=== PATIENT | female | born 1990 | race Caucasian/White ===

== ENCOUNTER 2023-12-04 13:27 | Emergency (ER) | payer OTHER, SELFPAY ==
--- NOTE | ~2023-12-04 | US_ITS ---
US OB <= 14 weeks fetus DATE: 12/04/2023 INDICATION: Vaginal bleeding, gravid patient TECHNIQUE: Real-time imaging via transabdominal approach only. Patient reportedly refused transvagina l imaging. COMPARISON: None FINDINGS: Uterus measures 11.8 cm sagittal, 6.6 cm AP and 8.2 cm transverse dimension. Live posada intrauterine gestation. heart rate 164 bpm. Ramirez-Perez-rump length measures 3.16 cm, consistent with 10 weeks +/- 6 days estimated gestational age wit h ALBINA of 07/01/2024. No subchorionic hemorrhage or abruption is identified on this limited transabdominal examination. No pelvic mass or abnormal pelvic fluid collection is demonstrated. The ovaries are not visualized. IMPRESSION: Live posada 10 week intrauterine gestation; no significant abnormality demonstrated on this limited transabdominal examination Reviewed, dictated and finalized at [facility]. Reviewed, dictated and finalized at [facility]. IMPRESSION: Live posada 10 week intrauterine gestation; no significant abnor mality demonstrated on this limited transabdominal examination
[2023-12-04 13:31] VITALS: BP 141/79; PULSE 71; RESP 18; TEMP 36.6; O2SAT 99
[2023-12-04 14:31] LABS: Basophils Absolute Auto 0.1 K/mm3 (0.0-0.1); Basophils Percent Auto 0.5 % (0.2-1.2); Eosinophils Absolute Auto 0.2 K/mm3 (0-0.3); Hematocrit 37.7 % (37.0-47.0); Hemoglobin 12.9 g/dL (12.0-15.0); Immature Granulocyte Absolute 0.05 K/mm3 (0.00-0.031); Immature Granulocyte Percent A 0.5 % (0-0.5); Lymphocytes Absolute Auto 2.93 K/mm3 (0.9-3.2); Lymphocytes Percent Auto 28.4 % (18.3-44.2); Mean Corpuscular HGB Conc 34.2 g/dl (32-36); Mean Corpuscular Hemoglobin 31.8 pg (26-34); Mean Corpuscular Volume 92.9 fl (80-100); Mean Platelet Volume 11.8 fl (7.4-10.4); Monocytes Absolute Auto 0.9 K/mm3 (0.1-0.6); Monocytes Percent Auto 8.3 % (2.6-8.5); Neutrophils Absolute Auto 6.2 K/mm3 (1.3-6.7); Neutrophils Percent Auto 60.3 % (45.5-73.1); Platelet Count Result 191 k/mm3 (150-375); Red Blood Count 4.06 M/mm3 (4.2-5.4); Red Cell Distribution Width 11.7 % (11.5-14.5); White Blood Count 10.3 K/mm3 (4.5-10.0)
[2023-12-04 14:41] LABS: INR 0.9
[2023-12-04 14:42] LABS: Partial Thromboplastin Time 26.7 Seconds (22.3-36.8)
[2023-12-04 14:44] LABS: Alanine Aminotransferase 16 U/L (6-35); Albumin Level 4.2 g/dL (3.5-5.1); Alkaline Phosphatase 37 U/L (38-126); Anion Gap 10 mmol/L (4-12); Aspartate Amino Transferase 23 U/L (14-36); Bilirubin,Total 0.2 mg/dL (0.2-1.3); Blood Urea Nitrogen 7 mg/dL (7-17); Calcium 9.3 mg/dL (8.4-10.2); Carbon Dioxide 24 mmol/L (22-30); Chloride 100 mmol/L (98-107); Estimated CRCL calculation 199 ml/min; Estimated Glomerular Filt Rate > 60; Glucose 86 mg/dL (65-110); Potassium 3.8 mmol/L (3.4-5.0); Sodium 134 mmol/L (137-145)
--- NOTE | 2023-12-04 15:03 | ED.PREGNANCY ---
HPI - General Chief complaint: Vaginal Bleeding Stated complaint: 9 weeks , vag bleed Time Seen by Provider: 12/04/23 14:09 Source: patient Mode of arrival: ambulatory Limitations: no limitations History of Present Illness HPI Narrative: This is a 33 year old , about 9 weeks by LMP that presents to the ER for vaginal spotting. Reports today after rastafari she noted light red/pink blood on the tissue when she wiped. Has had an US this . Follows with [facility] for this . Denies pelvic cramping. Related Data Allergies Allergy/AdvReac Type Severity Reaction Status Date / Time No Known Allergies Allergy Verified 12/04/23 13:44 Review of Systems Review of Systems: CONSTITUTIONAL: Denies fever GASTROINTESTINAL: Denies abdominal pain, nausea, vomiting All systems reviewed & are unremarkable except as noted in HPI and below PMFSH Past Medical History Medical History (Updated 12/04/23 @ 16:15 by Vita Anthony PA-C) History of hepatitis C Social History Social History (Updated 12/04/23 @ 15:05 by Vita Anthony PA-C) Smoking status: Former smoker Exam Narrative: GENERAL: Well-appearing, well-nourished, and in no acute distress. HEAD: Normocephalic, atraumatic. EYES: EOMI. CHEST: Clear to auscultation. No respiratory distress. No wheezes rales or rhonchi HEART: Regular rate and rhythm. No murmur heard. Normal peripheral pulses. ABDOMEN: Soft, nontender, nondistended, normal active bowel sounds. No CVA tenderness EXTREMITIES: Normal range of motion. No edema. SKIN: Warm, dry, no rash. NEURO: No focal deficits. Alert and oriented x3. PSYCH: Normal mood and affect Course Course Emergency Course: Patient and family updated on workup and agree with plan of care Vital Signs Vital signs: Vital Signs Temperature 97.9 F 12/04/23 13:31 Pulse Rate 71 12/04/23 13:31 Respiratory Rate 18 12/04/23 13:31 Blood Pressure 141/79 H 12/04/23 13:31 Pulse Oximetry 99 12/04/23 13:31 Temperature 97.9 F 12/04/23 13:31 Pulse Rate 71 12/04/23 13:31 Respiratory Rate 18 12/04/23 13:31 Blood Pressure 141/79 H 12/04/23 13:31 Pulse Oximetry 99 12/04/23 13:31 MDM - OB/Uterine Contractions MDM Narrative Medical decision making narrative: Patient presents to the emergency department for bleeding in 1st trimester . Reports this as very mild spotting. Her vitals are stable. She is afebrile and nontoxic appearing. Hemoglobin is normal. Patient is A positive. Quantitative beta-hCG 94,360. Ob ultrasound shows a single live intrauterine gestation around 10 weeks. Patient family updated on workup and agree with plan of care. Instructed to have further follow-up with her OB. She was given warnings to return to the ER Differential Diagnosis Differential diagnosis: Likely other (, threatened , subchorionic hemorrhage) Lab Data Attestation: I reviewed the patient's lab results. 12/04/23 14:24 12/04/23 14:24 Labs: Lab Results 12/04/23 Range/Units 14:24 WBC 10.3 H (4.5-10.0) K/mm3 RBC 4.06 L (4.2-5.4) M/mm3 Hgb 12.9 (12.0-15.0) g/dL Hct 37.7 (37.0-47.0) % MCV 92.9 (80-100) fl MCH 31.8 (26-34) pg MCHC 34.2 (32-36) g/dl RDW 11.7 (11.5-14.5) % Plt Count 191 (150-375) k/mm3 MPV 11.8 H (7.4-10.4) fl Immature Gran % (Auto) 0.5 (0-0.5) % Neut % (Auto) 60.3 (45.5-73.1) % Lymph % (Auto) 28.4 (18.3-44.2) % Burnett % (Auto) 8.3 (2.6-8.5) % Eos % (Auto) 2.0 (0-4.4) % Baso % (Auto) 0.5 (0.2-1.2) % Lymph # (Auto) 2.93 (0.9-3.2) K/mm3 Burnett # (Auto) 0.9 H (0.1-0.6) K/mm3 Eos # (Auto) 0.2 (0-0.3) K/mm3 Baso # (Auto) 0.1 (0.0-0.1) K/mm3 Abs Immat Gran (auto) 0.05 H (0.00-0.031) K/mm3 Absolute Neuts (auto) 6.2 (1.3-6.7) K/mm3 Absolute Nucleated RBC 0.000 (0.0-0.012) K/mm3 Nucleated RBC % 0.0 (0.0-0.2) % PT 13.0 (11.1-14.7) Seconds INR
--- NOTE | 2023-12-04 16:05 | PC.NURSE ---
Pt refused orthostatic
== END 2023-12-04 16:40 | disposition home or self-care (01) ==
PROVIDERS: Emergency Provider Physician Assistant
DX: O20.9 Hemorrhage in early pregnancy, unspecified (principal); Z3A.09 9 weeks gestation of pregnancy; Z87.891 Personal history of nicotine dependence; Z86.19 Personal history of other infectious and parasitic diseases
CPT/HCPCS: 36415; 76801; 76817; 80053; 84702; 85025; 85461; 85610; 85730; 86850; 86900; 86901; 99284

== ENCOUNTER 2024-02-29 17:12 | Emergency (ER) | payer OTHER, MEDICAID, SELFPAY ==
--- NOTE | ~2024-02-29 | US_ITS ---
EXAMINATION: US OB limited DATE: 02/29/2024 20:07 INDICATION: abdominal pain . TECHNIQUE: Real-time ultrasound of the pelvis was performed. COMPARISON: 12/04/2023. FINDINGS: There is a single living fetus in breech presentation, longitudinal lie. The placenta is anterior. F etal heart rate is 171 bpm. The amniotic fluid index is 6.2 cm, which is low (5th to 95th percentile is 9.7 to 21.6 cm). IMPRESSION: Single living fetus in breech presentation. tachycardia. Oligohydramnios. Reviewed, dictated and finalized at location K.
[2024-02-29 17:15] VITALS: BP 137/67; PULSE 108; RESP 16; TEMP 36.4; O2SAT 99
--- NOTE | 2024-02-29 18:59 | ECG_ITS ---
Test Date: 2024-02-29 21:07:23 Measurements Intervals [place] Rate: 98 P: 15 [place]: 150 QRS: 62 QRSD: 89 T: -19 QT: 331 QTc: 424 Interpretive Statements SINUS RHYTHM NONSPECIFIC T-WAVE ABNORMALITY No previous ECG available for comparison Electronically Signed On 03-01-2024 11:41:35 CDT by Ritesh Mccullough M.D.
--- NOTE | 2024-02-29 19:02 | ED.FEVER ---
HPI - Fever General Chief Complaint: Fever <Carisa Rubio Kaushik, ADA ACCOMMODATION CONSULTANT - Last Filed: 02/29/24 19:05> Stated Complaint: fever <Carisa Rubio Kaushik ADA ACCOMMODATION CONSULTANT - Last Filed: 02/29/24 19:05> Time Seen by Provider: 02/29/24 18:30 <Carisa Rubio Kaushik ADA ACCOMMODATION CONSULTANT - Last Filed: 02/29/24 19:05> Focused HPI: Patient is a 34-year-old female who presents to the ER complaints abdominal pain, headache, fever, intermittent cramping, and cough. She reports her symptoms started last night. Patient reports she is 21 weeks and concerned because of her cramping, dizziness, and dehydration. She reports she has a history of hepatitis C and herpes, but has had no recent outbreaks. Patient reports her last OBGYN appointment was approximately 1 week ago. She reports her last bowel movement was approximately 2 days ago, the patient has experienced constipation throughout her . Patient denies any cramping, vaginal bleeding, or back pain. GENERAL: Well-appearing, well-nourished, and in no acute distress. HEAD: Normocephalic, atraumatic. CHEST: Clear to auscultation. ?No respiratory distress. HEART: Tachycardia NEURO: ?Alert and oriented x3. Patient screened in triage and initial orders placed.? ?Additional care and disposition to be based upon?diagnostic testing and treatment. <Carisa Rubio Kaushik ADA ACCOMMODATION CONSULTANT - Last Filed: 02/29/24 19:05> Focused HPI: Patient is a 34-year-old female who presents to the ER complaints abdominal pain, headache, fever, intermittent cramping, and cough. She reports her symptoms started last night. Patient reports she is 21 weeks and concerned because of her cramping, dizziness, and dehydration. She reports she has a history of hepatitis C and herpes, but has had no recent outbreaks. Patient reports her last OBGYN appointment was approximately 1 week ago. She reports her last bowel movement was approximately 2 days ago, the patient has experienced constipation throughout her . Patient denies any cramping, vaginal bleeding, or back pain. GENERAL: Well-appearing, well-nourished, and in no acute distress. HEAD: Normocephalic, atraumatic. CHEST: Clear to auscultation. ?No respiratory distress. HEART: Tachycardia NEURO: ?Alert and oriented x3. Patient screened in triage and initial orders placed.? ?Additional care and disposition to be based upon?diagnostic testing and treatment. <Casie Tello PA-C - Last Filed: 03/01/24 03:25> Source: patient <Casie Tello PA-C - Last Filed: 03/01/24 03:25> Mode of arrival: ambulatory <Casie Tello PA-C - Last Filed: 03/01/24 03:25> Limitations: no limitations <Casie Tello PA-C - Last Filed: 03/01/24 03:25> History of Present Illness HPI Narrative: Agree with above HPI. 22 weeks gestation tomorrow. (2 previous abortions at young age). Sees Dr. Biggs with [facility]. Had US 1 week ago which was normal. Has been taking Tylenol and Robitussin for sx's. Denies abdominal pain, vaginal bleeding. She is feeling baby move somewhat. <Casie Tello PA-C - Last Filed: 03/01/24 03:25> Related Data Allergies/Adverse Reactions: Allergies Allergy/AdvReac Type Severity Reaction Status Date / Time No Known Allergies Allergy Verified 12/04/23 13:44 <Carisa Faulkner APRN - Last Filed: 02/29/24 19:05> Review of Systems Review of Systems: All systems reviewed & are unremarkable except as noted in HPI. <Casie Tello PA-C - Last Filed: 03/01/24 03:25> All systems reviewed & are unremarkable except as noted in HPI and below <Casie Tello PA-C - Last Filed: 03/01/24 03:25> [facility] Past Medical History Medical History: Medical History History of hepatitis C <Carisa Faulkner APRN - Last Filed: 02/29/24 19:05> Social History Social History: Social History Smoking status: Former smoker <Carisa Faulkner APRN - Last Filed: 02/29/24 19:05> Exam Narrative: GENERAL: Mildly ill and uncomfortable appearing, morbidly obese with BMI of 40.9, non-toxic, in no acute distress. HEAD: Normocephalic, atraumatic. RESPIRATORY: Airway patent, respirations nonlabored. Clear to auscultation bilaterally, no rales, rhonchi, wheezing. No focal lung sounds. CARDIOVASCULAR: Borderline tachycardic with regular rhythm without murmurs, rubs, or gallops. ABDOMINAL: Soft, uterus gravid just above umbilicus, no significant focal tenderness. Nondistended. Normoactive BS. MUSCULOSKELETAL: Moves all extremities. No gross deformities. SKIN: Warm, dry, normal color. NEURO: A&O X3. Speech clear. Cranial nerves II-XII grossly intact. Steady gait. No ataxic movements. PSYCHIATRIC: Appropriate mood and affect. Normal interaction. <Casie Tello PA-C - Last Filed: 03/01/24 03:25> Course Vital Signs Vital signs: Vital Signs Temperature 97.6 F 02/29/24 17:15 Pulse Rate 108 H 02/29/24 17:15 Respiratory Rate 16 02/29/24 17:15 Blood Pressure 137/67 02/29/24 17:15 Pulse Oximetry 99 02/29/24 17:15 Temperature 97.6 F 02/29/24 17:15 Pulse Rate 100 02/29/24 23:10 Respiratory Rate 16 02/29/24 23:10 Blood Pressure 121/62 02/29/24 23:10 Pulse Oximetry 97 02/29/24 23:10 <Carisa Faulkner APRN - Last Filed: 02/29/24 19:05> Vital Signs Temperature 97.6 F 02/29/24 17:15 Pulse Rate 108 H 02/29/24 17:15 Respiratory Rate 16 02/29/24 17:15 Blood Pressure 137/67 02/29/24 17:15 Pulse Oximetry 99 02/29/24 17:15 Temperature 97.6 F 02/29/24 17:15 Pulse Rate 100 02/29/24 23:10 Respiratory Rate 16 02/29/24 23:10 Blood Pressure 121/62 02/29/24 23:10 Pulse Oximetry 97 02/29/24 23:10 <Casie Tello PA-C - Last Filed: 03/01/24 03:25> MDM - Fever MDM Narrative Medical decision making narrative: Patient presented to ED with 2 day history of URI symptoms, currently 22 weeks gestation. Denying abd pain/vaginal bleeding. Patient tachycardic upon arrival. Afebrile here. CBC with white blood cell count of 11.6. Neutrophil predominance. No bandemia. CMP with potassium of 3.2, replaced orally. Normal magnesium. Otherwise stable electrolytes. Stable kidney function. Normal blood glucose. Lactic acid within normal range. Troponin undetectable. Viral swabs are negative. Strep negative. Urinalysis with 21-50 white blood cell count, trace leuk esterase. Moderate squamous cells noted. Sent for culture. Ob ultrasound was obtained and showing a live IUP, minimal tachycardia, oligohydramnios. Discussed lab and imaging findings with patient. Given 2 L of fluid in the ED. She is feeling much better with supportive therapy. Discussed obtaining a chest x-ray to further evaluate for potential pneumonia, however patient would prefer to defer this at this time given status. Discussed urinalysis and recommended for antibiotics for possible urinary tract infection. Patient would prefer to wait for culture results to determine if she needs antibiotics. She has not had any symptoms of a urinary tract infection. She states she had a ultrasound performed last week which was normal. There was no comment on oligohydramnios. Discussed case with payton Liang batting machine operator insulation for [facility], advised dehydration/infection/maternal fever can cause low fluid levels. Recommended patient to maintain hydration, f/u in office early next week, call office in the am. Will f/u on urine culture results. Patient is in agreement with these recommendations. She is wanting to go home at this time. She does feel improved after fluids. Discussed likelihood of a viral URI, continued management of such. Discussed [id number] therapies patient can use at home. Discussed strict return precautions. Patient is in agreement with this plan and feels comfortable going home. Discharged in stable condition. VSS at time of d/c. <Casie Tello PA-C - Last Filed: 03/01/24 03:25> Medical Records Attestation: I reviewed the patient's medical records. <Casie Tello PA-C - Last Filed: 03/01/24 03:25> Lab Data Attestation: I reviewed the patient's lab results. <Casie Tello PA-C - Last Filed: 03/01/24 03:25> Result diagrams: 02/29/24 19:50 02/29/24 19:50 <Carisa Faulkner APRN - Last Filed: 02/29/24 19:05> Labs: Lab Results 02/29/24 02/29/24 02/29/24 Range/Units 19:47 19:49 19:50 WBC 11.6 H (4.5-10.0) K/mm3 RBC 4.10 L (4.2-5.4) M/mm3 Hgb 12.7 (12.0-15.0) g/dL Hct 37.8 (37.0-47.0) % MCV 92.2 (80-100) fl MCH 31.0 (26-34) pg MCHC 33.6 (32-36) g/dl RDW 12.2 (11.5-14.5) % Plt Count 211 (150-375) k/mm3 MPV 10.5 H (7.4-10.4) fl Immature Gran % (Auto) 0.8 H (0-0.5) % Neut % (Auto) 83.0 H (45.5-73.1) % Lymph % (Auto) 8.3 L (18.3-44.2) % [place] % (Auto) 7.2 (2.6-8.5) % Eos % (Auto) 0.4 (0-4.4) % Baso % (Auto) 0.3 (0.2-1.2) % Lymph # (Auto) 0.96 (0.9-3.2) K/mm3 [place] # (Auto) 0.8 H (0.1-0.6) K/mm3 Eos # (Auto) 0.1 (0-0.3) K/mm3 Baso # (Auto) 0.0 (0.0-0.1) K/mm3 Abs Immat Gran (auto) 0.09 H (0.00-0.031) K/mm3 Absolute Neuts (auto) 9.6 H (1.3-6.7) K/mm3 Absolute Nucleated RBC 0.000 (0.0-0.012) K/mm3 Nucleated RBC % 0.0 (0.0-0.2) % PT 14.4 (11.1-14.7) Seconds INR 1.1 APTT 26.2 (22.3-36.8) Seconds Sodium 132 L (137-145) mmol/L Potassium 3.2 L (3.4-5.0) mmol/L Chloride 98 (98-107) mmol/L Carbon Dioxide 22 (22-30) mmol/L Anion Gap 12 (4-12) mmol/L BUN 4 L (7-17) mg/dL Creatinine 0.40 L (0.7-1.0) mg/dL Estim Creat Clear Calc 189 ml/min Estimated GFR > 60 (59 - ) Glucose 132 H (65-110) mg/dL Lactic Acid 2.0 (0.7-2.0) mmol/L Calcium 8.6 (8.4-10.2) mg/dL Magnesium 1.8 (1.6-2.3) mg/dL Total Bilirubin 0.4 (0.2-1.3) mg/dL AST 19 (14-36) U/L ALT 15 (6-35) U/L Alkaline Phosphatase 61 (38-126) U/L Troponin I < 0.012 (0.000-0.034) ng/mL C-Reactive Protein 5.0 H (<1.0) mg/dL Total Protein 8.0 (6.3-8.2) g/dL Albumin 4.3 (3.5-5.1) g/dL Lipase 49 (23-300) U/L Beta HCG, Quant 69314.00 mIU/ML Urine Color (Yellow) Urine Appearance (Clear) Urine pH (5.0-9.0) Ur Specific [place] (1.001-1.035) Urine Protein (Negative) mg/dL Urine Glucose (UA) (Negative) mg/dL Urine Ketones (Negative) mg/dL Ur Blood (Man) (Negative) Urine Nitrate (Negative) Urine Bilirubin (Negative) Urine Urobilinogen (<2.0) mg/dL Leukocyte Esterase Rfl (Negative) GAB/UL Urine RBC (0-2) /hpf Urine WBC (0-3) /hpf Ur Squamous Epith Cells (Few) /hpf Urine Bacteria /hpf Urine Casts Hyaline Casts (None) /lpf Influenza A (RT-PCR) Negative (Negative) Influenza B (RT-PCR) Negative (Negative) RSV (RT-PCR) Negative (Negative) SARS-CoV-2 RNA (RT-PCR) Negative (Negative) Group A Strep (PCR) Not detected (Negative) 02/29/24 Range/Units 21:01 WBC (4.5-10.0) K/mm3 RBC (4.2-5.4) M/mm3 Hgb (12.0-15.0) g/dL Hct (37.0-47.0) % MCV (80-100) fl MCH (26-34) pg MCHC (32-36) g/dl RDW (11.5-14.5) % Plt Count (150-375) k/mm3 MPV (7.4-10.4) fl Immature Gran % (Auto) (0-0.5) % Neut % (Auto) (45.5-73.1) % Lymph % (Auto) (18.3-44.2) % [place] % (Auto) (2.6-8.5) % Eos % (Auto) (0-4.4) % Baso % (Auto) (0.2-1.2) % Lymph # (Auto) (0.9-3.2) K/mm3 [place] # (Auto) (0.1-0.6) K/mm3 Eos # (Auto) (0-0.3) K/mm3 Baso # (Auto) (0.0-0.1) K/mm3 Abs Immat Gran (auto) (0.00-0.031) K/mm3 Absolute Neuts (auto) (1.3-6.7) K/mm3 Absolute Nucleated RBC (0.0-0.012) K/mm3 Nucleated RBC % (0.0-0.2) % PT (11.1-14.7) Seconds INR APTT (22.3-36.8) Seconds Sodium (137-145) mmol/L Potassium (3.4-5.0) mmol/L Chloride (98-107) mmol/L Carbon Dioxide (22-30) mmol/L Anion Gap (4-12) mmol/L BUN (7-17) mg/dL Creatinine (0.7-1.0) mg/dL Estim Creat Clear Calc ml/min Estimated GFR (59 - ) Glucose (65-110) mg/dL Lactic Acid (0.7-2.0) mmol/L Calcium (8.4-10.2) mg/dL Magnesium (1.6-2.3) mg/dL Total Bilirubin (0.2-1.3) mg/dL AST (14-36) U/L ALT (6-35) U/L Alkaline Phosphatase (38-126) U/L Troponin I (0.000-0.034) ng/mL C-Reactive Protein (<1.0) mg/dL Total Protein (6.3-8.2) g/dL Albumin (3.5-5.1) g/dL Lipase (23-300) U/L Beta HCG, Quant mIU/ML Urine Color Yellow (Yellow) Urine Appearance Cloudy H (Clear) Urine pH 7.5 (5.0-9.0) Ur Specific [place] 1.023 (1.001-1.035) Urine Protein 2+ H (Negative) mg/dL Urine Glucose (UA) Trace H (Negative) mg/dL Urine Ketones Negative (Negative) mg/dL Ur Blood (Man) Negative (Negative) Urine Nitrate Negative (Negative) Urine Bilirubin Negative (Negative) Urine Urobilinogen 1.0 (<2.0) mg/dL Leukocyte Esterase Rfl Trace H (Negative) GAB/UL Urine RBC 3-5 H (0-2) /hpf Urine WBC 21-50 H (0-3) /hpf Ur Squamous Epith Cells Moderate (Few) /hpf Urine Bacteria Rare /hpf Urine Casts 6-10 Hyaline Casts Present (None) /lpf Influenza A (RT-PCR) (Negative) Influenza B (RT-PCR) (Negative) RSV (RT-PCR) (Negative) SARS-CoV-2 RNA (RT-PCR) (Negative) Group A Strep (PCR) (Negative) <Carisa Faulkner, ADA ACCOMMODATION CONSULTANT - Last Filed: 02/29/24 19:05> Lab Results 02/29/24 02/29/2424 Range/Units 19:47 19:49 19:50 WBC 11.6 H (4.5-10.0) K/mm3 RBC 4.10 L (4.2-5.4) M/mm3 Hgb 12.7 (12.0-15.0) g/dL Hct 37.8 (37.0-47.0) % MCV 92.2 (80-100) fl MCH 31.0 (26-34) pg MCHC 33.6 (32-36) g/dl RDW 12.2 (11.5-14.5) % Plt Count 211 (150-375) k/mm3 MPV 10.5 H (7.4-10.4) fl Immature Gran % (Auto) 0.8 H (0-0.5) % Neut % (Auto) 83.0 H (45.5-73.1) % Lymph % (Auto) 8.3 L (18.3-44.2) % [place] % (Auto) 7.2 (2.6-8.5) % Eos % (Auto) 0.4 (0-4.4) % Baso % (Auto) 0.3 (0.2-1.2) % Lymph # (Auto) 0.96 (0.9-3.2) K/mm3 [place] # (Auto) 0.8 H (0.1-0.6) K/mm3 Eos # (Auto) 0.1 (0-0.3) K/mm3 Baso # (Auto) 0.0 (0.0-0.1) K/mm3 Abs Immat Gran (auto) 0.09 H (0.00-0.031) K/mm3 Absolute Neuts (auto) 9.6 H (1.3-6.7) K/mm3 Absolute Nucleated RBC 0.000 (0.0-0.012) K/mm3 Nucleated RBC % 0.0 (0.0-0.2) % PT 14.4 (11.1-14.7) Seconds INR 1.1 APTT 26.2 (22.3-36.8) Seconds Sodium 132 L (137-145) mmol/L Potassium 3.2 L (3.4-5.0) mmol/L Chloride 98 (98-107) mmol/L Carbon Dioxide 22 (22-30) mmol/L Anion Gap 12 (4-12) mmol/L BUN 4 L (7-17) mg/dL Creatinine 0.40 L (0.7-1.0) mg/dL Estim Creat Clear Calc 189 ml/min Estimated GFR > 60 (59 - ) Glucose 132 H (65-110) mg/dL Lactic Acid 2.0 (0.7-2.0) mmol/L Calcium 8.6 (8.4-10.2) mg/dL Magnesium 1.8 (1.6-2.3) mg/dL Total Bilirubin 0.4 (0.2-1.3) mg/dL AST 19 (14-36) U/L ALT 15 (6-35) U/L Alkaline Phosphatase 61 (38-126) U/L Troponin I < 0.012 (0.000-0.034) ng/mL C-Reactive Protein 5.0 H (<1.0) mg/dL Total Protein 8.0 (6.3-8.2) g/dL Albumin 4.3 (3.5-5.1) g/dL Lipase 49 (23-300) U/L Beta HCG, Quant 86730.00 mIU/ML Urine Color (Yellow) Urine Appearance (Clear) Urine pH (5.0-9.0) Ur Specific [place] (1.001-1.035) Urine Protein (Negative) mg/dL Urine Glucose (UA) (Negative) mg/dL Urine Ketones (Negative) mg/dL Ur Blood (Man) (Negative) Urine Nitrate (Negative) Urine Bilirubin (Negative) Urine Urobilinogen (<2.0) mg/dL Leukocyte Esterase Rfl (Negative) GAB/UL Urine RBC (0-2) /hpf Urine WBC (0-3) /hpf Ur Squamous Epith Cells (Few) /hpf Urine Bacteria /hpf Urine Casts Hyaline Casts (None) /lpf Influenza A (RT-PCR) Negative (Negative) Influenza B (RT-PCR) Negative (Negative) RSV (RT-PCR) Negative (Negative) SARS-CoV-2 RNA (RT-PCR) Negative (Negative) Group A Strep (PCR) Not detected (Negative) 02/29/24 Range/Units 21:01 WBC (4.5-10.0) K/mm3 RBC (4.2-5.4) M/mm3 Hgb (12.0-15.0) g/dL Hct (37.0-47.0) % MCV (80-100) fl MCH (26-34) pg MCHC (32-36) g/dl RDW (11.5-14.5) % Plt Count (150-375) k/mm3 MPV (7.4-10.4) fl Immature Gran % (Auto) (0-0.5) % Neut % (Auto) (45.5-73.1) % Lymph % (Auto) (18.3-44.2) % [place] % (Auto) (2.6-8.5) % Eos % (Auto) (0-4.4) % Baso % (Auto) (0.2-1.2) % Lymph # (Auto) (0.9-3.2) K/mm3 [place] # (Auto) (0.1-0.6) K/mm3 Eos # (Auto) (0-0.3) K/mm3 Baso # (Auto) (0.0-0.1) K/mm3 Abs Immat Gran (auto) (0.00-0.031) K/mm3 Absolute Neuts (auto) (1.3-6.7) K/mm3 Absolute Nucleated RBC (0.0-0.012) K/mm3 Nucleated RBC % (0.0-0.2) % PT (11.1-14.7) Seconds INR APTT (22.3-36.8) Seconds Sodium (137-145) mmol/L Potassium (3.4-5.0) mmol/L Chloride (98-107) mmol/L Carbon Dioxide (22-30) mmol/L Anion Gap (4-12) mmol/L BUN (7-17) mg/dL Creatinine (0.7-1.0) mg/dL Estim Creat Clear Calc ml/min Estimated GFR (59 - ) Glucose (65-110) mg/dL Lactic Acid (0.7-2.0) mmol/L Calcium (8.4-10.2) mg/dL Magnesium (1.6-2.3) mg/dL Total Bilirubin (0.2-1.3) mg/dL AST (14-36) U/L ALT (6-35) U/L Alkaline Phosphatase (38-126) U/L Troponin I (0.000-0.034) ng/mL C-Reactive Protein (<1.0) mg/dL Total Protein (6.3-8.2) g/dL Albumin (3.5-5.1) g/dL Lipase (23-300) U/L Beta HCG, Quant mIU/ML Urine Color Yellow (Yellow) Urine Appearance Cloudy H (Clear) Urine pH 7.5 (5.0-9.0) Ur Specific [place] 1.023 (1.001-1.035) Urine Protein 2+ H (Negative) mg/dL Urine Glucose (UA) Trace H (Negative) mg/dL Urine Ketones Negative (Negative) mg/dL Ur Blood (Man) Negative (Negative) Urine Nitrate Negative (Negative) Urine Bilirubin Negative (Negative) Urine Urobilinogen 1.0 (<2.0) mg/dL Leukocyte Esterase Rfl Trace H (Negative) GAB/UL Urine RBC 3-5 H (0-2) /hpf Urine WBC 21-50 H (0-3) /hpf Ur Squamous Epith Cells Moderate (Few) /hpf Urine Bacteria Rare /hpf Urine Casts 6-10 Hyaline Casts Present (None) /lpf Influenza A (RT-PCR) (Negative) Influenza B (RT-PCR) (Negative) RSV (RT-PCR) (Negative) SARS-CoV-2 RNA (RT-PCR) (Negative) Group A Strep (PCR) (Negative) <Casie Tello PA-C - Last Filed: 03/01/24 03:25> Imaging Data Attestation: I personally reviewed and interpreted this imaging study as follows: <Casie Tello PA-C - Last Filed: 03/01/24 03:25> Radiologist's impression: ITS Impressions Obstetrics Ultrasound 02/29/24 20:10 IMPRESSION: Single living fetus in breech presentation. tachycardia. Oligohydramnios. <NESHA Rockwell Last Filed: 03/01/24 03:25> ECG Data EKG #1: Attestation: I personally reviewed and interpreted this ECG as follows: <NESHA Rockwell Last Filed: 03/01/24 03:25> ECG completion date: 03/01/24 <Casie Tello PA-C - Last Filed: 03/01/24 03:25> ECG completion time: 21:07 <Casie Tello PA-C - Last Filed: 03/01/24 03:25> EKG Interpretation: normal rate (98), sinus rhythm and non-specific ST changes <Casie Tello PA-C - Last Filed: 03/01/24 03:25> Discharge Plan Discharge Clinical Impression: Upper respiratory infection, 22 weeks gestation of , Oligohydramnios, Asymptomatic bacteriuria during , Dehydration <Carisa Faulkner APRN - Last Filed: 02/29/24 19:05> Patient Disposition: Home, Self-Care <Carisa Faulkner APRN - Last Filed: 02/29/24 19:05> Condition: Stable <Carisa Faulkner APRN - Last Filed: 02/29/24 19:05> Instructions: Antibiotic Form, Upper Respiratory Infection (ED), Urinary Tract Infection in (ED), at 19 to 22 Weeks (ED), Oligohydramnios (DC) <Carisa Faulkner APRN - Last Filed: 02/29/24 19:05> Additional Instructions: Continue Tylenol as needed for discomfort and/or fevers. You may take 1000 mg of Tylenol every 6 hours. You may also use nasal saline sprays, Mucinex, Robitussin as needed for cough. Stay very well hydrated. Follow-up with your OBGYN for further evaluation. Call office tomorrow to make follow up appointment. They would like to see you in office early next week. Your urine showed signs of possible infection. It is being sent for culture. Follow-up with your OBGYN for results of this. Return to the ED if you experience worsening or severe symptoms, severe pain, abdominal pain, vaginal bleeding, unable to keep down food or drink, significant shortness of breath, chest pain, or any other symptoms of concern. <Carisa Faulkner APRN - Last Filed: 02/29/24 19:05> Follow-up/Referrals: PHYSICIAN NOT ON STAFF,NONSTAFF [Non-Staff] - <Carisa Faulkner APRN - Last Filed: 02/29/24 19:05> Time of Disposition: 22:47 <Carisa Faulkner APRN - Last Filed: 02/29/24 19:05> 22:47 <Casie Tello PA-C - Last Filed: 03/01/24 03:25>
[2024-02-29] MEDS: SODIUM CHLORIDE 0.9% IV 1,000 ML 999 ML IV CONT ×2 (19:44→21:19)
--- NOTE | 2024-02-29 19:57 | PC.NURSE ---
Pt JOSE MIGUEL for ultrasound.
[2024-02-29 20:06] LABS: Basophils Percent Auto 0.3 % (0.2-1.2); Eosinophils Absolute Auto 0.1 K/mm3 (0-0.3); Eosinophils Percent Auto 0.4 % (0-4.4); Hematocrit 37.8 % (37.0-47.0); Hemoglobin 12.7 g/dL (12.0-15.0); Immature Granulocyte Absolute 0.09 K/mm3 (0.00-0.031); Immature Granulocyte Percent A 0.8 % (0-0.5); Lymphocytes Absolute Auto 0.96 K/mm3 (0.9-3.2); Lymphocytes Percent Auto 8.3 % (18.3-44.2); Mean Corpuscular HGB Conc 33.6 g/dl (32-36); Mean Corpuscular Volume 92.2 fl (80-100); Mean Platelet Volume 10.5 fl (7.4-10.4); Monocytes Absolute Auto 0.8 K/mm3 (0.1-0.6); Monocytes Percent Auto 7.2 % (2.6-8.5); Neutrophils Absolute Auto 9.6 K/mm3 (1.3-6.7); Platelet Count Result 211 k/mm3 (150-375); Red Cell Distribution Width 12.2 % (11.5-14.5); White Blood Count 11.6 K/mm3 (4.5-10.0)
[2024-02-29 20:17] LABS: INR 1.1; Partial Thromboplastin Time 26.2 Seconds (22.3-36.8); Prothrombin Time 14.4 Seconds (11.1-14.7)
[2024-02-29 20:20] LABS: Alanine Aminotransferase 15 U/L (6-35); Albumin Level 4.3 g/dL (3.5-5.1); Alkaline Phosphatase 61 U/L (38-126); Anion Gap 12 mmol/L (4-12); Aspartate Amino Transferase 19 U/L (14-36); Bilirubin,Total 0.4 mg/dL (0.2-1.3); Blood Urea Nitrogen 4 mg/dL (7-17); Calcium 8.6 mg/dL (8.4-10.2); Carbon Dioxide 22 mmol/L (22-30); Chloride 98 mmol/L (98-107); Estimated CRCL calculation 189 ml/min; Estimated Glomerular Filt Rate > 60; Glucose 132 mg/dL (65-110); Lipase 49 U/L (23-300); Potassium 3.2 mmol/L (3.4-5.0); Sodium 132 mmol/L (137-145)
[2024-02-29 20:30] LABS: Troponin I < 0.012 ng/mL (0.000-0.034)
[2024-02-29 20:30] LABS: Strep Group A RT-PCR NOT DETECTED (Negative)
[2024-02-29 21:12] LABS: Magnesium 1.8 mg/dL (1.6-2.3)
[2024-02-29] MEDS: POTASSIUM CHLORIDE 20 MEQ ER TABLET 40 MEQ PO (21:19)
[2024-02-29 22:02] LABS: Add Urine Microscopic? YES; Appearance Urine Cloudy (Clear); Bacteria Urine Rare /hpf; Bilirubin Urine Negative (Negative); Blood Urine Negative (Negative); Color Urine Yellow (Yellow); Glucose Urine UA Trace mg/dL (Negative); Hyaline Casts Urine Present /lpf; Ketones Urine Negative (Negative); Leukocyte Esterase Ur Trace LEU/UL (Negative); Nitrate Urine Negative (Negative); Protein Urine 2+ mg/dL (Negative); Specific Grav Ur 1.023 (1.001-1.035); Squamous Epithelial Cell Urine Moderate /hpf (Few); WBC Urine 21-50 /hpf (0-3); pH Urine 7.5 (5.0-9.0)
--- NOTE | 2024-02-29 22:27 | PC.NURSE ---
Pt upset about wait time. Pt educated by this RN that her FLU and Covid tests have not resulted yet. Pt. provider notified by this RN of pt. frustration. PA to bedside for better update.
[2024-02-29 22:29] LABS: Influenza A QL RT-PCR Negative (Negative); Influenza B QL RT-PCR Negative (Negative); RSV RNA, RT-PCR Negative (Negative); SARS-CoV-2 RNA PCR Negative (Negative)
[2024-02-29 23:10] VITALS: BP 121/62; PULSE 100; RESP 16; O2SAT 97
== END 2024-02-29 23:14 | disposition home or self-care (01) ==
PROVIDERS: Registered Nurse; Emergency Provider Physician Assistant
DX: O99.512 Diseases of the respiratory system complicating pregnancy, second trimester (principal); J06.9 Acute upper respiratory infection, unspecified; O41.02X0 Oligohydramnios, second trimester, not applicable or unspecified; O99.282 Endocrine, nutritional and metabolic diseases complicating pregnancy, second trimester; E86.0 Dehydration; O26.891 Other specified pregnancy related conditions, first trimester; R82.71 Bacteriuria; O09.522 Supervision of elderly multigravida, second trimester; Z20.822 Contact with and (suspected) exposure to COVID-19; Z86.19 Personal history of other infectious and parasitic diseases; Z87.891 Personal history of nicotine dependence; Z3A.22 22 weeks gestation of pregnancy; O36.8320 Maternal care for abnormalities of the fetal heart rate or rhythm, second trimester, not applicable or unspecified; O32.1XX0 Maternal care for breech presentation, not applicable or unspecified; R94.31 Abnormal electrocardiogram [ECG] [EKG]
CPT/HCPCS: 36415; 76815; 80053; 81001; 83605; 83690; 83735; 84484; 84702; 85025; 85610; 85730; 86140; 87040; 87086; 87637; 87651; 93005; 96360; 96361; 99284; A9270; J7030

== ENCOUNTER 2024-03-02 22:01 | Emergency (ER) | payer OTHER, MEDICAID, SELFPAY ==
[2024-03-02 22:06] VITALS: BP 130/68; PULSE 98; RESP 18; TEMP 36.6; O2SAT 97
--- NOTE | 2024-03-02 23:36 | ED_ITS ---
[facility] - General Adult General Chief complaint: Shortness of Breath/Dyspnea Stated complaint: sob Time Seen by Provider: 03/02/24 23:36 Source: patient Mode of arrival: ambulatory Limitations: no limitations History of Present Illness HPI narrative: This is a 34-year-old female who presents to the ED for chief complaint of dyspnea, cough and wheezing for the past several days. Patient reports that she was here recently but refused x-ray due to being . She reports she is about 22 weeks . She has concern for pneumonia. Denies fevers, chills, chest pain, abdominal pain, nausea, vomiting. Related Data Allergies Allergy/AdvReac Type Severity Reaction Status Date / Time No Known Allergies Allergy Verified 03/02/24 22:14 Review of Systems Review of Systems: All systems as dictated in [facility] Past Medical History Medical History History of hepatitis C Social History Social History Smoking status: Former smoker Exam Narrative: GENERAL: Well-appearing, well-nourished, and in no acute distress. HEAD: Normocephalic, atraumatic. EYES: PERRLA and EOMI. ENT: Nares clear, no rhinorrhea or epistaxis. Mucous membranes moist. Oropharynx without tonsillar hypertrophy exudate or other lesions. NECK: Supple. No adenopathy or masses. CHEST: No respiratory distress. 97% room air. Coarse breath sounds heard bilaterally, worse in the bases. Faint expiratory wheezes in the bases. HEART: Regular rate and rhythm. No murmur heard. Normal peripheral pulses. ABDOMEN: Soft, nontender, nondistended, normal active bowel sounds. MSK: Normal range of motion. No edema. SKIN: Warm, dry, no rash. NEURO: Alert and oriented x4. No focal deficits. PSYCH: Normal mood and affect. Course Vital Signs Vital signs: Vital Signs Temperature 97.8 F 03/02/24 22:06 Pulse Rate 98 03/02/24 22:06 Respiratory Rate 18 03/02/24 22:06 Blood Pressure 130/68 03/02/24 22:06 Pulse Oximetry 97 03/02/24 22:06 Oxygen Delivery Room Air 03/02/24 22:06 Temperature 97.8 F 03/02/24 22:06 Pulse Rate 76 03/03/24 00:12 Respiratory Rate 15 03/03/24 00:12 Blood Pressure 118/74 03/03/24 00:12 Pulse Oximetry 100 03/03/24 00:12 Oxygen Delivery Room Air 03/03/24 00:04 Medical Decision Making MDM Narrative Medical decision making narrative: This is a 34 yo female who is approximately 22 weeks and presents to the ED for cough and fever. Vitals are normal. Exam shows bilateral habitus breath sounds and wheezing heard in the bases. No overt respiratory distress. She is otherwise well-appearing on exam. Patient is choosing to avoid chest x-ray today. She was seen recently and had negative viral swabs. Clinically your symptoms and presentation are consistent with possible pneumonia. Will treat with cefdinir twice per day. Encouraged follow-up with her Ob as scheduled. Patient will be discharged in stable condition. Supportive measures discussed and return precautions given. Patient is understanding and agreeable with plan for discharge with PCP follow-up. Vital Signs Vital Signs: Vital Signs Temperature 97.8 F 03/02/24 22:06 Pulse Rate 98 03/02/24 22:06 Respiratory Rate 18 03/02/24 22:06 Blood Pressure 130/68 03/02/24 22:06 Pulse Oximetry 97 03/02/24 22:06 Oxygen Delivery Room Air 03/02/24 22:06 Temperature 97.8 F 03/02/24 22:06 Pulse Rate 76 03/03/24 00:12 Respiratory Rate 15 03/03/24 00:12 Blood Pressure 118/74 03/03/24 00:12 Pulse Oximetry 100 03/03/24 00:12 Oxygen Delivery Room Air 03/03/24 00:04 Discharge Plan Discharge Clinical Impression: Acute cough, Wheezing Patient Disposition: Home, Self-Care Condition: Stable Instructions: Antibiotic Form Additional Instructions: Exam today is concerning for possible pneumonia. Please take antibiotics as prescribed and albuterol as prescribed. Follow-up with OBGYN on this issue. If you have any new or worsening symptoms please return to the ER for further evaluation. Prescriptions: New albuterol sulfate 90 mcg/actuation HFA aerosol inhaler 2 puff inhalation QID PRN (Reason: shortness of breath or wheezing) Qty: 6.7 0RF cefdinir 300 mg capsule 300 mg PO Q12H 7 Days Qty: 14 0RF Follow-up/Referrals: UNKNOWN,DOCTOR [Primary Care Provider] - Time of Disposition: 23:47
[2024-03-03 00:04] VITALS: O2SAT 100
[2024-03-03 00:12] VITALS: BP 118/74; PULSE 76; RESP 15; O2SAT 100
== END 2024-03-03 00:13 | disposition home or self-care (01) ==
LOC: ANHED 23:55
PROVIDERS: Emergency Provider Physician Assistant
DX: R05.1 Acute cough (principal); R06.2 Wheezing; Z86.19 Personal history of other infectious and parasitic diseases
CPT/HCPCS: 99283

== ENCOUNTER 2024-03-11 12:29 | Emergency (ER) | payer OTHER, MEDICAID, SELFPAY ==
--- NOTE | ~2024-03-11 | XR_ITS ---
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 RESULT: Lines, tubes, and devices: None. Lungs and pleura: Clear. Cardiomediastinal silhouette: Normal. Other: No acute osseous or upper abdominal finding. IMPRESSION: No acute cardiopulmonary process. Reviewed, dictated and finalized at location K. MACHINE MECHANIC
[2024-03-11 12:36] VITALS: BP 150/84; PULSE 110; RESP 24; TEMP 36.4; O2SAT 97
[2024-03-11] MEDS: IPRATROPIUM 0.5 MG/ALBUTEROL SULFATE 2.5 MG AMPUL.NEB 3 ML INHALATION (14:52)
[2024-03-11 14:53] VITALS: PULSE 103; RESP 26
[2024-03-11 15:03] VITALS: PULSE 108; RESP 21
[2024-03-11] MEDS: predniSONE 20 MG TABLET 60 MG PO (15:03)
--- NOTE | 2024-03-11 15:10 | ED_ITS ---
HPI - General Adult General Chief complaint: Upper Respiratory Infection Stated complaint: SOB-sick for 3 weeks Time Seen by Provider: 03/11/24 14:25 History of Present Illness HPI narrative: patient 34-year-old female who presents emergency department with chief complaint of cough and shortness of breath. The patient reports that she was seen about 2 weeks ago in the emergency department diagnosed with bronchitis given cefdinir and inhaler the patient reports she continues to have shortness of breath and continues to have wheezing home and has used inhaler multiple times at home the patient reports she is 23 weeks and is followed by [facility] the patient states that she was told if her breathing got worse she should come back to the emergency department Related Data Allergies Allergy/AdvReac Type Severity Reaction Status Date / Time No Known Allergies Allergy Verified 03/11/24 12:29 Review of Systems Review of Systems: A 10 system review of systems was completed on the patient and is negative except for what is stated in the HPI. Nursing and ancillary documentation was reviewed. [facility] Past Medical History Medical History History of hepatitis C Social History Social History Smoking status: Former smoker Exam Narrative: GENERAL: Well-appearing, well-nourished, and in no acute distress. HEAD: Normocephalic, atraumatic. EYES: PERRLA and EOMI. ENT: Nares clear, no rhinorrhea or epistaxis. Mucous membranes moist. NECK: Supple. CHEST: Clear to auscultation. No respiratory distress. HEART: Regular rate and rhythm. No murmur heard. Normal peripheral pulses. ABDOMEN: Soft, nontender, nondistended, normal active bowel sounds. EXTREMITIES: Normal range of motion. No edema. SKIN: Warm, dry, no rash. NEURO: No focal deficits. Alert and oriented x3. PSYCH: Normal mood and affect. Course Vital Signs Vital signs: Vital Signs Temperature 36.4 C 03/11/24 12:36 Pulse Rate 110 H 03/11/24 12:36 Respiratory Rate 24 H 03/11/24 12:36 Blood Pressure 150/84 H 03/11/24 12:36 Pulse Oximetry 97 03/11/24 12:36 Temperature 36.4 C 03/11/24 12:36 Pulse Rate 105 H 03/11/24 16:10 Respiratory Rate 28 H 03/11/24 16:10 Blood Pressure 145/80 H 03/11/24 16:10 Pulse Oximetry 95 03/11/24 16:10 Oxygen Delivery Room Air 03/11/24 16:10 Medical Decision Making MDM Narrative Medical decision making narrative: differential diagnosis was pneumonia, bronchospasm chest x-ray showed no focal infiltrate COVID flu and RSV were negative Vital Signs Vital Signs: Vital Signs Temperature 36.4 C 03/11/24 12:36 Pulse Rate 110 H 03/11/24 12:36 Respiratory Rate 24 H 03/11/24 12:36 Blood Pressure 150/84 H 03/11/24 12:36 Pulse Oximetry 97 03/11/24 12:36 Temperature 36.4 C 03/11/24 12:36 Pulse Rate 105 H 03/11/24 16:10 Respiratory Rate 28 H 03/11/24 16:10 Blood Pressure 145/80 H 03/11/24 16:10 Pulse Oximetry 95 03/11/24 16:10 Oxygen Delivery Room Air 03/11/24 16:10 Lab Data Labs: Lab Results 03/11/24 Range/Units 14:55 Influenza A (RT-PCR) Negative (Negative) Influenza B (RT-PCR) Negative (Negative) RSV (RT-PCR) Negative (Negative) SARS-CoV-2 RNA (RT-PCR) Negative (Negative) Discharge Plan Discharge Clinical Impression: Bronchitis, Acute bronchospasm Patient Disposition: Home, Self-Care Condition: Stable Instructions: Antibiotic Form, Acute Bronchitis (ED) Additional Instructions: please follow-up with your OBGYN Prescriptions: New prednisone 20 mg tablet 40 mg PO DAILY 5 Days Qty: 10 0RF albuterol sulfate 90 mcg/actuation HFA aerosol inhaler 2 puff inhalation QID PRN (Reason: shortness of breath or wheezing) Qty: 8.5 0RF No Action albuterol sulfate 90 mcg/actuation HFA aerosol inhaler 2 puff inhalation QID PRN (Reason: shortness of breath or wheezing) Qty: 6.7 0RF cefdinir 300 mg capsule 300 mg PO Q12H 7 Days Qty: 14 0RF Follow-up/Referrals: Mike Marshall MD [Physician] - UNKNOWN,DOCTOR [Primary Care Provider] - Time of Disposition: 17:06
[2024-03-11 15:35] LABS: Influenza A QL RT-PCR Negative (Negative); Influenza B QL RT-PCR Negative (Negative); RSV RNA, RT-PCR Negative (Negative); SARS-CoV-2 RNA PCR Negative (Negative)
[2024-03-11 16:10] VITALS: BP 145/80; PULSE 105; RESP 28; O2SAT 95; O2SAT 97
== END 2024-03-11 17:39 | disposition home or self-care (01) ==
PROVIDERS: Emergency Provider Emergency Medicine
DX: J40 Bronchitis, not specified as acute or chronic (principal); J98.01 Acute bronchospasm; Z20.822 Contact with and (suspected) exposure to COVID-19; Z86.19 Personal history of other infectious and parasitic diseases; Z87.891 Personal history of nicotine dependence
CPT/HCPCS: 71046; 87637; 94640; 99283; J7512

== ENCOUNTER 2025-04-06 14:13 | Emergency (ER) | payer OTHER, SELFPAY ==
--- OUTSIDE RECORDS SUMMARY | 2025-04-06 14:15 | XMS_ITS | Encounter Summary ---
Author Organization [facility] Address [address] [place] [address] Care Team Providers Care Metal Smelter Name Role Phone Fabian Callaway Primary Care Provider Syk Palm MD Primary Care Provider [phone] Encounter Details Date Type Department Care Team (Late st Contact Info) Description 06/15/2022 Lab Requisition [facility] Care DermPath Lab [address] [place] [id number] Kirit Hernandez MD [address] [place] [address] Social History Tobacco Use Types Packs/Day Years Used Date Smoking Tobacco: Former Cigarettes 1 2 - 2017 Smokeless Tobacco: Never Alcohol Use Standard Drinks/Week Comments Not Currently 0 (1 standard drink = 0.6 oz pur e alcohol) NONE SINCE 2018 Overall Financial Resource Strain (CARDIA) Answe r Date Recorded How hard is it for you to pa y for the very basics like food, housing, medical care, and heating? Not hard at all 05/20/2020 Hunger Vital Sign Answer Date Recorded Within the past 12 months, y ou worried that your food would run out before you got the money to buy more. Never true 05/20/19 21 Within the past 12 months, t he food you bought just didn't last and you didn't have money to get more. Never true 05/20/2020 PRAPARE - Transportation Answer Date Re corded In the past 12 months, has l ack of transportation kept you from medical appointments or from getting medications? No 05/02 In the past 12 months, has l ack of transportation kept you from meetings, work, or from getting things needed for daily living? No 05/20/2020 Education Answer Date Recorded What is the highest level of school you have completed or the highest degree you have received? 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 Author Medication Management General On track( 024 10:43 AM CDT) No Camilla Higgins, RN Note: Expected end date: ONGOING Interventions: Take all medications as prescribed Let your doctor know right away about any changes in your medications Make sure to request a refill of your medication at least one week prior to your last dose documented as of this encounter Procedures Procedure Name Priority Date/Time Associated Diagnosis Comments DERMATOPATHOLOGY Routine 06/15/2022 12:0 0 AM MANAGER INTEGRATED documented in this encounter Results * DERMATOPATHOLOGY (06/15/2022 12:00 AM MANAGER INTEGRATED) Case Report Dermatopathology Report Case: [id number] Authorizing Provider: Kirit Hernandez MD Collected: 06/15/2022 12:00 AM Ordering Location: [facility] DermPath Lab Received: 06/15/2022 03:34 PM Pathologist: Juliane Veronica MD Specimen: Skin, right dorsal forearm 3 4:55 PM MANAGER [employer]TE[employer] DERMATOPATHOLOGY LABORATORY Final Diagnosis Specimen A. SKIN, right dorsal forearm: LICHEN PLANUS (L43.9) 3 4:[address] [facility] DERMATOPATHOLOGY LABORATORY at [address] MANAGER INTEGRATED Clinical History L.P. 3 4:[address] [facility] DERMATOPATHOLOGY LABORATORY Gross Description Specimen A: Received is one formalin filled container labeled with the patient's name and designated right dorsal forearm. The specimen consists of a shave biopsy measuring 3x3x1 mm. Jar 0. 3 4:[address] [facility] DERMATOPATHOLOGY LABORATORY Microscopic Description Specimen A. SKIN, right dorsal forearm: There is saw-toothed epidermal hyperplasia, hypergranulosis, and compact hyperorthokeratosis . There is a lichenoid infiltrate of lymphocytes that obscures the dermal-epidermal junction in association with vacuolar alteration and necrotic keratinocytes. 3 4:[address] [facility] DERMATOPATHOLOGY LABORATORY Disclaimer An external and internal positive and negative controls are appropriate for the histochemical, immunohistochemical and immunofluorescence stain(s) in this case (if any), except where stated explicitly. The performance characteristics of the stain(s) cited in this report were developed and its performance characteristic determined by the Dermatopathology Laboratory at [facility], directed by Dr. Shila Veronica. These tests need not be, and therefore are not, approved by the [place] Food and Drug Administration. The tests are used for clinical purposes. Billing Codes Specimen Charges Stain Charges 82220 1 3 4:[address] [facility] DERMATOPATHOLOGY LABORATORY Embedded Images 3 4:[address] [facility] DERMATOPATHOLOGY LABORATORY Pathology/Cytolog y TISSUE SPECIMEN FROM SKIN / Unknown 06/15/2022 06/15/2022 3:[address] [facility] us Kirit Hernandez MD LAB - PATHOLOGY/CYTOLOGY ORDERAB LES Final Result DERMATOPATHOLOGY LABORATORY [facility] - Department of Dermatology [address], [address] [phone] documented in this encounter Visit Diagnoses Not on filedocumented in this encounter Care Teams Metal Smelter Relationship Specialty Start Date End Date Fabian Callaway, CLAIM PROCESSOR-[employer] [address] [place], [place] [id number] PCP - General 02/20/20 03/10/23 Sky Palm MD [address] [place] [address] PCP - General Gastroenterology 03/11/23 documented as of this encounter
--- OUTSIDE RECORDS SUMMARY | 2025-04-06 14:15 | XMS_ITS | Clinical Summary ---
Author Organization [facility] Address [address] [place] [id number] Care Team Providers Care Histopath Tech Name Role Phone No, Physician Primary Care Provider [phone] Andrzej Aburto MD Unavailable [phone] Allergies No known active allergies Medications vit 20-yhkh-uzxut-dh a 27mg iron- 800 mcg-250 mg capsule Take by mouth Active vitamin D3-vitamin K2 25 mcg (1,000 unit)-90 mcg tablet,disintegr ating Take by mouth Active oxyCODONE-acetam inophen (PERCOCET) 5-325 mg per tabletIndication s:Pain Take 1 tablet by mouth every 4 (four) hours as needed for pain (pain) 14 tablet 07/01/2024 Active ibuprofen (ADVIL,MOTRIN) 800 mg tablet Take 1 tablet (800 mg total) by mouth every 8 (eight) hours as needed for pain (pain) 30 tablet 07/01/2024 Active Active Problems Problem Noted Date Diagnosed Date delivery delivered 07/01/2024 39 weeks gestation of 06/28/[birth year]24 Surgical History Surgery Date Site/Laterality Comments D&C FIRST TRIMESTER / TX INC OMPLETE / MISSED / SEPTIC / INDUCED Medical History Medical History Date Comments Gestational diabetes Chronic hepatitis C (HCC) receiv ed tx in 2020 from [facility] liver clinic Herpes Thrombocytopenic disorder plt 10 3, medrol dose pack rx 06/19/24 Family History Medical History Relation Name Comments Diabetes Father Cancer Maternal Grandmother Diabetes Mother Heart disease Paternal Grandfather Relation Name Status Comments Father Maternal Grandmother Mother Paternal Grandfather Social History Tobacco Use Types Packs/Day Years Used Date Smoking Tobacco: Former Cigarettes Smokeless Tobacco: Never Tobacco Cessation:Counseling Given: Not Answered Social Connection and Isolation Panel Answer Date Recorded In a typical week, how many times do you talk on the phone with family, friends, or neighbors? More than three times a week 06/28/2024 How often do you get togethe r with friends or relatives? More than three times a week 06/28/2024 How often do you attend [facility] or rastafari services? More than 4 times per year 06/28/2024 Do you belong to any clubs o r organizations such as restorationism groups, unions, fraternal or athletic groups, or school groups? Yes 06/28/2024 How often do you attend meet ings of the clubs or organizations you belong to? More than 4 times per year 06/28/2024 Are you , , di vorced, , never , or living with a partner? 06/28/2024 AUDIT-C Answer Date Recorded Q1: How often do you have a drink containing alcohol? Never 06/28/2024 Q2: How many drinks containi ng alcohol do you have on a typical day when you are drinking? Patient does not drink Q3: How often do you have si x or more drinks on one occasion? Never 06/28/2024 Overall Financial Resource Strain (CARDIA) Answe r Date Recorded How hard is it for you to pa y for the very basics like food, housing, medical care, and heating? Somewhat hard 06/28/2024 PHQ-2 Answer Date Recorded PHQ-2 Total Score (If total score is 3 or more points, staff should administer the PHQ-9) 0 06/28/2024 [facility] - Occupational Stress Questionnaire Answer Date Recorded Do you feel stress - tense, restless, nervous, or anxious, or unable to sleep at night because your mind is troubled all the time - these days? Only a little 06/28/2024 Exercise Vital Sign Answer Date Recorde d On average, how many days pe r week do you engage in moderate to strenuous exercise (like a brisk walk)? 5 days Minutes of Exercise per Session Not on file 06/28/2024 Hunger Vital Sign Answer Date Recorded Within the past 12 months, y ou worried that your food would run out before you got the money to buy more. Never true 06/28/19 25 Within the past 12 months, t he food you bought just didn't last and you didn't have money to get more. Never true 06/28/2024 PRAPARE - Transportation Answer Date Re corded In the past 12 months, has l ack of transportation kept you from medical appointments or from getting medications? No 06/03 In the past 12 months, has l ack of transportation kept you from meetings, work, or from getting things needed for daily living? No 06/28/2024 Amma Depression Scale Answer Date Recorded Amma Depression Scale Total 0 06/29/2024 The thought of harming myself has occurred to me . Never 06/29/2024 PHQ-9 Answer Date Recorded PHQ-9 Total Score 0 06/28/2024 Housing Stability Vital Sign Answer Ozzy e Recorded In the last 12 months, was t here a time when you were not able to pay the mortgage or rent on time? Yes 06/28/2024 In the past 12 months, how m any times have you moved where you were living? 2 06/28/2024 At any time in the past 12 m [facility], were you homeless or living in a half-way (including now)? Yes 06/28/2024 Personal Safety Answer Date Recorded Have you ever been in or are you currently in a harmful physical or emotional relationship or is someone making you feel afraid or unsafe? 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 [employer] Gender Identity Not on file Sexual Orientation Not on file Obstetrics History Para Term AB IAB SAB Ectopic Multiple Livin g Live Births 3 1 1 2 2 0 1 1 Date Outcome GA Total Labor Labor/2nd/3rd Weight Sex Type Anes PTL Mariaa A1 A5 Name Clin IAB IAB 2024 Term 39w 0d 0h 04m 0h 04m 3.6 kg (7 lb 15 oz) F C-Sec tion Spinal Livin g 8 9 Pati Cutler, Damaris Guerrero MD Delivery Location:[facility] (E L AND D PROCEDURE) Comments GDM- ON METFORMIN LGA Last Filed Vital Signs Vital Sign Reading Time Taken Comments Blood Pressure 133/63 07/01/2024 10:01 AM EXECUTIVE [employer] Pulse 93 07/01/2024 10:01 AM EXECUTIVE [employer] Temperature 36.4 C (97.5 F) 07/01/2024 10:01 AM EXECUTIVE [employer]ER [employer] Respiratory Rate 14 07/01/2024 10:01 AM EXECUTIVE [employer] Oxygen Saturation 98% 07/01/2024 6:41 AM EXECUTIVE [employer] Inhaled Oxygen Concentration - - Weight 113 kg (249 lb 3.2 oz) 06/21/2024 2:46 PM EXEC[employer]IVE [employer] Height 165.1 cm (5' 5) 06/28/2024 10:00 AM EXECUTIVE [employer] Body Mass Index 41.47 12/10/2020 8:04 AM CDT Plan of Treatment Health Maintenance Due Date Last Done Comments Cervical Cancer Screening 1988 Varicella Vaccines (1 of 2 - 13+ 2-dose series) 01/27/2001 Hepatitis B Screening 01/27/2006 Regular Well Visit/Exam 18-64 01/27/2006 HPV Vaccines (1 - 3-dose SCDM series) 01/27/2015 Covid-19 Vaccine (3 - season) 2024 08/07/2020, 06/24/2020 Influenza Vaccine (#1) 2024 Depression Screening 06/29/2025 06/29/2024, 06/12/2024, 06/12/2024 DTaP/Tdap/Td Vaccine (6 - Td or Tdap) 05/26/2029 05/26/2019, 11/27/1993, 1988, Additional history exists Hepatitis C Screening Completed 11/23/2023 Pneumococcal vaccine <65 Aged Out No longer eligible based on patient's age to complete this topic Procedures Procedure Name Priority Date/Time Associated Diagnosis Comments HEPATITIS C ANTIBODY Routine 11/23/2023 from Last 3 Months or Most Recently Relevant to Health Maintenance Results * Hepatitis C antibody Blood (11/23/2023) SCRIBED HCV ab Reactive Blood us Sheree Alcantara MD LAB MICROBIOLOGY - GENERA L ORDERABLES Final Result from Last 3 Months or Most Recently Relevant to Health Maintenance Insurance [facility] OTHER R [facility]PA [facility] Advance Directives For more information, please contact: [phone] * Full Code (Latest Code Status on File) Date Activated Date Inactivated Comments 06/28/2024 1:35 PM 07/01/2024 5:12 PM * Full Code Date Activated Date Inactivated Comments 06/28/2024 8:22 AM 06/28/2024 1:35 PM Full CPR in case of cardiopulmonary arrest Care Teams Histopath Tech Relationship Specialty Start Date End Date No, Physician PCP - General 11/29/23 Andrzej Aburto MD [address] [place] [id number] 11/29/23
--- OUTSIDE RECORDS SUMMARY | 2025-04-06 14:15 | XMS_ITS | Data Portability ---
Author Organization [facility] , [facility] Address [address] [place] [address] Assessment No assessment recorded. Plan of Treatment Reminders Order Date Submit Date Provider Last Modified By Organization Details Last Modified Time Details Appointments None recorded. Lab test, urine 2024 025 [facility], [address] [place], [address], 5 15:52:30 pap, LB 2024 025 [facility], [address] [place], [address], 5 12:45:48 unlisted lab - HPV plus CT/GC/trich 2024 025 [facility]DE[facility], [address] [place] [address], [address], 5 19:00:35 CBC w/ auto diff 2024 025 [facility], [address] [place], [address], 5 05:06:02 Referral None recorded. Procedures None recorded. Surgeries None recorded. Imaging US, obstetric, biophysical profile 2024 025 [email or web address] Not available 5 07:25:25 US, obstetric, follow-up 2024 025 [email or web address] Not available 07:25:25 US, obstetric, biophysical profile 2024 025 ADELE [facility], [address] [place], [address], 08:55:03 Medication Orders Slynd 4 mg (28) tablet 2024 025 [id number], [address] , [place], [address], 13:33:24 Patient TargetsNo targets recorded. Patient Instructions Encounter Date Encounter Id Patient Instructions Last Modified By Organization Details Last Modified Time 07/31/2024 [id number] depression after childbirth: care instructions Not available 08/01/2024 17:49:50 Care at Home With Your Baby: Care Instructions Not available 08/01/2024 17:49:50 control after counseling Not available 08/01/2024 17:49:50 11/13/2024 [id number] body mass index: care instructions Not available 11/13/2024 13:33:21 A healthy lifestyle: care instructions Not available 11/13/2024 13:33:21 Following the [employer] Food Guide: Care Instructions Not available 11/13/2024 13:33:20 exercise program : getting started Not available 11/13/2024 13:33:21 contraception information Not available 11/13/2024 13:33:21 Reason for Referral None Reported. Results Created Date Observation Date Name Description Value Unit Range Abnormal Flag Note LastModifiedBy Organization Detail LastModifiedTime 06/23/1906/23/2024 CBC (INCL UDES DIFF/ PLT) white blood cell count 12.6 thous and/u L 3.8-10 .8 high Not Available kajeet [facility] [address] [place], [address], 06/23/2024 05:06:02 06/23/19 25 06/23/2024 CBC (INCL UDES DIFF/ PLT) red blood cell count 4.19 lo on/uL 3.80-5 .10 normal Not Available [address], [address], 06/23/2024 05:06:02 06/23/19 25 06/23/2024 CBC (INCL UDES DIFF/ PLT) hemoglobin 12.7 g/dL 11.7-1 5.5 normal Not Available [address], [address], 06/23/2024 05:06:02 06/23/19 25 06/23/2024 CBC (INCL UDES DIFF/ PLT) hematocrit 38.6 % 35.0-4 5.0 normal Not Available [address], [address], 06/23/2024 05:06:02 06/23/19 25 06/23/2024 CBC (INCL UDES DIFF/ PLT) MCV 92.1 fL 80.0-1 00.0 normal Not Available [address], [address], 06/23/2024 05:06:02 06/23/19 25 06/23/2024 CBC (INCL UDES DIFF/ PLT) MCH 30.3 pg 27.0-3 3.0 normal Not Available [address], [address], 06/23/2024 05:06:02 06/23/19 25 06/23/2024 CBC (INCL UDES DIFF/ PLT) MCHC 32.9 g/dL 32.0-3 6.0 normal For adult s, a sligh t decre ase in the calcu lated MCHC value (in the range of 30 to 32 g/dL) is most likel y not clini anjana signi brett t; soren er, it shoul d be inter prete d with cauti on in corre latio n with other red cell alok eters and the patie nt's clini erica condi tion. Not Available [facility] [address], [address], 06/23/2024 05:06:02 06/23/19 25 06/23/2024 CBC (INCL UDES DIFF/ PLT) RDW 12.4 % 11.0-1 5.0 normal Not Available [address], [address], 06/23/2024 05:06:02 06/23/19 25 06/23/2024 CBC (INCL UDES DIFF/ PLT) platelet count 97 thous and/u L 140-40 0 low Not Available [address], [address], 06/23/2024 05:06:02 06/23/19 25 06/23/2024 CBC (INCL UDES DIFF/ PLT) MPV 12.1 fL 7.5-12 .5 normal Not Available [address], [address], 06/23/2024 05:06:02 06/23/19 25 06/23/2024 CBC (INCL UDES DIFF/ PLT) absolute neutrophils 9765 cells /uL 1500-7 800 high Not Available [address], [address], 06/23/2024 05:06:02 06/23/19 25 06/23/2024 CBC (INCL UDES DIFF/ PLT) absolute lymphocytes 1651 cells /uL 850-39 00 normal Not Available [facility] [address], [address], 06/23/2024 05:06:02 06/23/19 25 06/23/2024 CBC (INCL UDES DIFF/ PLT) absolute monocytes 958 cells /uL 200-95 0 high Not Available [facility] [address], [address], 06/23/2024 05:06:02 06/23/19 25 06/23/2024 CBC (INCL UDES DIFF/ PLT) absolute eosinophils 164 cells /uL 15-500 normal Not Available [facility] [address], [address], 06/23/2024 05:06:02 06/23/19 25 06/23/2024 CBC (INCL UDES DIFF/ PLT) absolute basophils 63 cells /uL 0-200 normal Not Available [facility] [address], [address], 06/23/2024 05:06:02 06/23/19 25 06/23/2024 CBC (INCL UDES DIFF/ PLT) neutrophils 77.5 % normal Not Available [facility] [address], [address], 06/23/2024 05:06:02 06/23/19 25 06/23/2024 CBC (INCL UDES DIFF/ PLT) lymphocytes 13.1 % normal Not Available [facility] [address], [address], 06/23/2024 05:06:02 06/23/19 25 06/23/2024 CBC (INCL UDES DIFF/ PLT) monocytes 7.6 % normal Not Available [facility] [address], [address], 06/23/2024 05:06:02 06/23/19 25 06/23/2024 CBC (INCL UDES DIFF/ PLT) eosinophils 1.3 % normal Not Available [facility] [address], [address], 06/23/2024 05:06:02 06/23/19 25 06/23/2024 CBC (INCL UDES DIFF/ PLT) basophils 0.5 % normal Not Available [facility] [address], [address], 06/23/2024 05:06:02 06/12/19 25 06/15/2024 STREP TOCOC CUS, GROUP B CULTU RE streptococcu s, group B culture SEE NOTE abnormal STREP TOCOC CUS, GROUP B CULTU RE Micro Numbe r: [id number] Test Statu s: Final Speci men Sourc e: Recto vag Speci men Quali ty: Adequ ate Resul t: Group B Strep tococ cus isola wojciech Beta- hemol ytic strep tococ ci are predi ctabl y susce ptibl e to Penic illin and other beta- lacta ms. Susce ptibi lity testi ng not routi abigail perfo rmed. Pleas e conta ct the labor atory withi n 3 days if susce ptibi lity testi ng is kal ed. Note per CDC guide lines optim al recov surekha is achie rafael by swabb ing both the lower vagin a and rectu m (thro ugh the anal sphin cter) . Not Available [address], [address], 06/15/2024 10:17:55 06/15/1906/19/2024 COMPR EHENS RASHAAD METAB OLIC PANEL glucose 70 mg/dL 65-99 normal Fasti ng refer ence inter tila Not Available [address], [address], 06/19/2024 11:52:27 06/15/19 25 06/19/2024 COMPR EHENS RASHAAD METAB OLIC PANEL urea nitrogen (BUN) 8 mg/dL 7-25 normal Not Available [address], [address], 06/19/2024 11:52:27 06/15/19 25 06/19/2024 COMPR EHENS RASHAAD METAB OLIC PANEL creatinine 0.51 mg/dL 0.50-0 .97 normal Not Available [address], [address], 06/19/2024 11:52:27 06/15/19 25 06/19/2024 COMPR EHENS RASHAAD METAB OLIC PANEL eGFR 124 mL/mi n/1.7 3m2 > or = 60 normal Not Available [address], [address], 06/19/2024 11:52:27 06/15/19 25 06/19/2024 COMPR EHENS RASHAAD METAB OLIC PANEL BUN/creatini ne ratio SEE NOTE: (calc ) 6-22 Not Repor wojciech: BUN and Creat inine are withi n refer ence range . Not Available [address], [address], 06/19/2024 11:52:27 06/15/19 25 06/19/2024 COMPR EHENS RASHAAD METAB OLIC PANEL sodium 135 mmol/ L 135-14 6 normal Not Available [address], [address], 06/19/2024 11:52:27 06/15/19 25 06/19/2024 COMPR EHENS RASHAAD METAB OLIC PANEL potassium 4.2 mmol/ L 3.5-5. 3 normal Not Available [address], [address], 06/19/2024 11:52:27 06/15/19 25 06/19/2024 COMPR EHENS RASHAAD METAB OLIC PANEL chloride 101 mmol/ L 98-110 normal Not Available [address], [address], 06/19/2024 11:52:27 06/15/19 25 06/19/2024 COMPR EHENS RASHAAD METAB OLIC PANEL carbon dioxide 25 mmol/ L 20-32 normal Not Available [address], [address], 06/19/2024 11:52:27 06/15/19 25 06/19/2024 COMPR EHENS RASHAAD METAB OLIC PANEL calcium 9.3 mg/dL 8.6-10 .2 normal Not Available [address], [address], 06/19/2024 11:52:27 06/15/19 25 06/19/2024 COMPR EHENS RASHAAD METAB OLIC PANEL protein, total 6.6 g/dL 6.1-8. 1 normal Not Available [address], [address], 06/19/2024 11:52:27 06/15/19 25 06/19/2024 COMPR EHENS RASHAAD METAB OLIC PANEL albumin 3.7 g/dL 3.6-5. 1 normal Not Available [address], [address], 06/19/2024 11:52:27 06/15/19 25 06/19/2024 COMPR EHENS RASHAAD METAB OLIC PANEL globulin 2.9 g/dL_ (calc ) 1.9-3. 7 normal Not Available [address], [address], 06/19/2024 11:52:27 06/15/19 25 06/19/2024 COMPR EHENS RASHAAD METAB OLIC PANEL albumin/glob ulin ratio 1.3 (calc ) 1.0-2. 5 normal Not Available [address], [address], 06/19/2024 11:52:27 06/15/19 25 06/19/2024 COMPR EHENS RASHAAD METAB OLIC PANEL bilirubin, total 0.2 mg/dL 0.2-1. 2 normal Not Available [address], [address], 06/19/2024 11:52:27 06/15/19 25 06/19/2024 COMPR EHENS RASHAAD METAB OLIC PANEL alkaline phosphatase 109 U/L 31-125 normal Not Available [address], [address], 06/19/2024 11:52:27 06/15/19 25 06/19/2024 COMPR EHENS RASHAAD METAB OLIC PANEL AST 14 U/L 10-30 normal Not Available [address], [address], 06/19/2024 11:52:27 06/15/19 25 06/19/2024 COMPR EHENS RASHAAD METAB OLIC PANEL ALT 10 U/L 6-29 normal Not Available [address], [address], 06/19/2024 11:52:27 06/15/19 25 06/19/2024 CBC (INCL UDES DIFF/ PLT) white blood cell count 13.3 thous and/u L 3.8-10 .8 high Not Available [address], [address], 06/19/2024 11:52:28 06/15/19 25 06/19/2024 CBC (INCL UDES DIFF/ PLT) red blood cell count 4.26 lo on/uL 3.80-5 .10 normal Not Available [address], [address], 06/19/2024 11:52:28 06/15/19 25 06/19/2024 CBC (INCL UDES DIFF/ PLT) hemoglobin 13.0 g/dL 11.7-1 5.5 normal Not Available [address], [address], 06/19/2024 11:52:28 06/15/19 25 06/19/2024 CBC (INCL UDES DIFF/ PLT) hematocrit 39.1 % 35.0-4 5.0 normal Not Available [address], [address], 06/19/2024 11:52:28 06/15/19 25 06/19/2024 CBC (INCL UDES DIFF/ PLT) MCV 91.8 fL 80.0-1 00.0 normal Not Available [address], [address], 06/19/2024 11:52:28 06/15/19 25 06/19/2024 CBC (INCL UDES DIFF/ PLT) MCH 30.5 pg 27.0-3 3.0 normal Not Available [address], [address], 06/19/2024 11:52:28 06/15/19 25 06/19/2024 CBC (INCL UDES DIFF/ PLT) MCHC 33.2 g/dL 32.0-3 6.0 normal For adult s, a sligh t decre ase in the calcu lated MCHC value (in the range of 30 to 32 g/dL) is most likel y not clini anjana signi ficjessica t; soren er, it shoul d be inter prete d with cauti on in corre latio n with other red cell alok eters and the patie nt's clini erica condi tion. Not Available [address], [address], 06/19/2024 11:52:28 06/15/19 25 06/19/2024 CBC (INCL UDES DIFF/ PLT) RDW 12.5 % 11.0-1 5.0 normal Not Available [address], [address], 06/19/2024 11:52:28 06/15/19 25 06/19/2024 CBC (INCL UDES DIFF/ PLT) platelet count 103 thous and/u L 140-40 0 low Not Available [address], [address], 06/19/2024 11:52:28 06/15/19 25 06/19/2024 CBC (INCL UDES DIFF/ PLT) MPV 12.3 fL 7.5-12 .5 normal Not Available [address], [address], 06/19/2024 11:52:28 06/15/19 25 06/19/2024 CBC (INCL UDES DIFF/ PLT) absolute neutrophils 9549 cells /uL 1500-7 800 high Not Available [address], [address], 06/19/2024 11:52:28 06/15/19 25 06/19/2024 CBC (INCL UDES DIFF/ PLT) absolute lymphocytes 2394 cells /uL 850-39 00 normal Not Available [address], [address], 06/19/2024 11:52:28 06/15/19 25 06/19/2024 CBC (INCL UDES DIFF/ PLT) absolute monocytes 1011 cells /uL 200-95 0 high Not Available [address], [address], 06/19/2024 11:52:28 06/15/19 25 06/19/2024 CBC (INCL UDES DIFF/ PLT) absolute eosinophils 279 cells /uL 15-500 normal Not Available [address], [address], 06/19/2024 11:52:28 06/15/19 25 06/19/2024 CBC (INCL UDES DIFF/ PLT) absolute basophils 67 cells /uL 0-200 normal Not Available [address], [address], 06/19/2024 11:52:28 06/15/19 25 06/19/2024 CBC (INCL UDES DIFF/ PLT) neutrophils 71.8 % normal Not Available [address], [address], 06/19/2024 11:52:28 06/15/19 25 06/19/2024 CBC (INCL UDES DIFF/ PLT) lymphocytes 18.0 % normal Not Available [facility] [address] [address], [place], [address], 06/19/2024 11:52:28 06/15/19 25 06/19/2024 CBC (INCL UDES DIFF/ PLT) monocytes 7.6 % normal Not Available [address], [address], 06/19/2024 11:52:28 06/15/19 25 06/19/2024 CBC (INCL UDES DIFF/ PLT) eosinophils 2.1 % normal Not Available [address], [address], 06/19/2024 11:52:28 06/15/19 25 06/19/2024 CBC (INCL UDES DIFF/ PLT) basophils 0.5 % normal Not Available [address], [address], 06/19/2024 11:52:28 06/15/19 25 06/19/2024 PROTE IN, TOTAL W/CRE AT, RANDO M URINE creatinine, random urine 100 mg/dL 20-275 normal Not Available [address], [address], 06/19/2024 11:52:28 06/15/19 25 06/19/2024 PROTE IN, TOTAL W/CRE AT, RANDO M URINE protein/crea tinine ratio 160 mg/g_ creat 24-184 normal Not Available [address], [address], 06/19/2024 11:52:28 06/15/19 25 06/19/2024 PROTE IN, TOTAL W/CRE AT, RANDO M URINE protein/crea tinine ratio 0.160 mg/mg _crea t 0.024- 0.184 normal Not Available [address], [address], 06/19/2024 11:52:28 06/15/19 25 06/19/2024 PROTE IN, TOTAL W/CRE AT, RANDO M URINE protein, total, random ur 16 mg/dL 5-24 normal Not Available kajeet [facility] [address] [place], [address], 06/19/2024 11:52:28 11/14/19 25 11/17/[address]/GC /TRIC H trichomonas vaginalis TRICH neg negati ve normal Not Available [address], [address], 11/17/2024 19:00:35 11/14/19 25 11/17/[address]/GC /TRIC H chlamydia trachomatis CT neg negati ve normal This repor t is inten ded for us in clini erica monit oring and manag ement of patie nts. It is not inten ded for use in medic al-le gal appli catio n. Not Available [facility] [address] [place] [address], [address], 11/17/2024 19:00:35 11/14/19 25 11/17/[address]/GC /TRIC H neisseria gonorrhoeae GC neg negati ve normal This repor t is inten ded for us in clini erica monit oring and manag ement of patie nts. It is not inten ded for use in medic al-le gal appli catio n. Not Available [place], [address], 11/17/2024 19:00:35 11/14/19 25 11/17/[address]/GC /TRIC H HPV high risk Negati ve negati ve normal The HPV High Risk assay is inten ded for use as co-te sting with cytol ogy and not as a subst itute for regul ar cervi erica cytol ogy scree melisa. This assay is not inten ded for use as a scree melisa devic e for women under age 30 with khalida l cervi erica cytol ogy. Not Available [facility] [address] [place], [address], 11/17/2024 19:00:35 11/14/1911/19/2024 THINP REP TIS PAP clinical information: normal None given Not Available [place] [address] [place], [address], 11/19/2024 12:45:48 11/14/1911/19/2024 THINP REP TIS PAP LMP: normal NONE GIVEN Not Available [address] [place], [address], 11/19/2024 12:45:48 11/14/1911/19/2024 THINP REP TIS PAP prev. Pap: normal NONE GIVEN Not Available [address] [place], [address], 11/19/2024 12:45:48 11/14/1911/19/2024 THINP REP TIS PAP prev. BX: normal NONE GIVEN Not Available [address] [address] [place], [address], 11/19/2024 12:45:48 11/14/1911/19/2024 THINP REP TIS PAP source: normal Cervi x Not Available [address] [address] [place], [address], 11/19/2024 12:45:48 11/14/1911/19/2024 THINP REP TIS PAP statement of adequacy: normal Satis facto ry for evalu ation . Endoc ervic al/tr ansfo rmati on zone compo nent prese nt. Age and/o r menst rual statu s not provi ded Not Available [address] [address] [place], [address], 11/19/2024 12:45:48 11/14/19 25 11/19/2024 THINP REP TIS PAP interpretati on/result: normal Cytol ogy Resul ts: Negat rashaad for intra epith elial lesio n or mercywenceslao marvin . Not Available [address] [address] [place], [address], 11/19/2024 12:45:48 11/14/19 25 11/19/2024 THINP REP TIS PAP comment: normal This Pap test has been evalu ated with the ThinP rep(R ) Imagi ng Syste m. Not Available [address] [address] [address], [place], [address], 11/19/2024 12:45:48 11/14/19 25 11/19/2024 THINP REP TIS PAP cytotechnolo gist: normal JXD, CT( CP) CT Scree melisa Locat ion: [facility], [address] [place] [address] CLIA: [id number] Slide prepa ratio n perfo rmed at: [facility], [address] [place] [address] CLIA: [id number] Not Available [facility] [address] [address] [address], [place], [address], 11/19/2024 12:45:48 11/14/19 25 11/19/2024 THINP REP TIS PAP comment EXPLA NATOR Y NOTE: The Pap is a scree melisa test for cervi erica cance r. It is not a diagn ostic test and is subje ct to false negat rashaad and false posit rashaad resul ts. It is most relia ble when a satis facto ry sampl e, regul harini obtai angie, is submi tted with relev ant clini erica findi ngs and histo ry, and when the Pap resul t is evalu ated along with histo darin and curre nt clini erica infor matio n. Not Available [address] [address] [address], [place], [address], 11/19/2024 12:45:48 11/14/19 25 11/13/2024 pregn melquiades test, urine HCG negati ve Not Available [facility] [address], [place], [address], 11/13/2024 13:33:53 05/30/19 US, obste tric, bioph ysica l profi le No observ ation record ed. [email or web address] [facility] [address], [place], [address], 06/18/2024 13:53:56 06/02/1905/30/2024 US, obste tric, bioph ysica l profi le No observ ation record ed. [email or web address] [facility] [address], [place], [address], 06/18/2024 13:54:05 06/06/19 25 06/06/2024 US, obste tric, bioph ysica l profi le No observ ation record ed. [email or web address] [facility] [address], [place], [address], 06/18/2024 13:53:42 06/12/19 US, obste tric, bioph ysica l profi le No observ ation record ed. [email or web address] [facility] [address] [facility], [place], [address], 06/18/2024 13:53:15 06/13/1906/12/2024 US, obste tric, bioph ysica l profi le No observ ation record ed. [email or web address] [facility] [address], [place], [address], 06/18/2024 13:53:23 06/15/19 US, obste tric, bioph ysica l profi le No observ ation record ed. [email or web address] [facility] [address], [place], [address], 06/18/2024 13:53:05 06/15/1906/15/2024 US, obste tric, bioph ysica l profi le No observ ation record ed. [email or web address] [facility] [address], [place], [address], 06/18/2024 13:53:10 06/22/19 US, obste tric, bioph ysica l profi le No observ ation record ed. [email or web address] [facility] [address] [place], [address], 06/22/2024 12:05:34 06/22/1906/22/2024 US, obste tric, bioph ysica l profi le No observ ation record ed. [email or web address] [facility] [address], [place], [address], 06/24/2024 08:54:23 06/26/1906/26/2024 US, obste tric, bioph ysica l profi le No observ ation record ed. [email or web address] [facility] [address], [place], [address], 06/26/2024 13:53:46 Result Notes None recorded. Problems Name Problem SNOMED Code Status Onset Date Resolution Date Notes Provider Name and Address Organization Details Recorded Time Chronic hepatiti s C 240924737 Completed received tx in 2020 from [facility] JAMIA DENT DO [address] [place] [address], [phone], [facility] 4 15:57:59 History of alcohol abuse 398173648 Completed sober since 2017 JAMIA DENT DO [address] [place] [address], [phone], [facility] 4 11:12:39 Pregnanc y 43541576 Completed 202308/27/2024 Amber thorn[place], [place] - [facility] 5 15:18:48 Family history of diabetes mellitus 071450056 Active 2024 Elías Puentes null, [place] - [facility] 5 10:17:43 Gestatio nal diabetes mellitus 58673250 Completed 2024 Metformin 1000 am, 500 qhs Debra kang, CN [address] [place], [address], [facility] 5 12:27:28 Gestatio nal diabetes mellitus 23751666 Active 2024 Metformin 1000 am, 500 qhs Debra Byers-Da pearl, [facility] [address] [place] [address], [phone], [facility] - [facility] 5 12:27:28 Thromboc ytopenic disorder 727335064 Completed 2024 Plt 103, medrol dose pack Rx 06/19 repeat CBC at 38 week apt Debra kang, [address], [address], [facility] - [facility] 5 12:38:51 Problem Notes None recorded. Procedures Surgical History Date Name Laterality Status Provider Name and Address Organization Details Recorded Time 5 Date of Last Pap Smear completed MICHAEL CHOWDHURY NP [address] [place] [address], [phone], [facility] 11/22/2024 22:16:09 5 section completed Karen Long [facility] 07/03/2024 11:38:49 5 NST completed ANTHONY FREEMAN [address] [place] [address], [phone], [facility] - [facility] 06/26/2024 13:18:26 5 NST completed Vita Adame MD [address] [place] [address], [phone], [facility] 06/22/2024 13:58:58 5 NST completed Debra Rodney CNM [address] [place] [address], [phone], [facility] [employer] 06/19/2024 13:09:42 NST completed JAMIA DENT, [address] [facility], [place], [address], [facility] 06/12/2024 12:47:30 C Section completed [facility] 11/13/2024 12:51:17 Dilation and curettage completed [facility] 11/13/2024 12:59:18 Imaging Results None recorded. Procedure Notes None recorded. Medical Equipment None Reported. Allergies No known drug allergies Medications Name Sig Start Date Stop Date Status Note LastModified by Organization Details LastModified Time venlafaxine ER 37.5 mg capsule,ext ended release 24 hr TAKE 1 CAPSULE BY MOUTH EVERY DAY WITH FOOD 11/13 completed Not Available Not Available Not Available prednisone 10 mg tablet TAKE 1 TABLET BY MOUTH TWICE DAILY FOR 5 DAYS 11/08 completed Not Available Not Available Not Available doxycycline hyclate 100 mg capsule TAKE 1 CAPSULE BY MOUTH TWICE DAILY FOR 14 DAYS 11/07 completed Not Available Not Available Not Available nicotine 14 mg/24 hr daily transdermal patch APPLY 1 PATCH DAILY TO SKIN 11/08 completed Not Available Not Available Not Available trazodone 50 mg tablet TAKE 1 TABLET BY MOUTH EVERY DAY AT BEDTIME IF NEEDED active Not Available Not Available No t Available ibuprofen 800 mg tablet TAKE 1 TABLET (800 MG) BY MOUTH EVERY 8 (EIGHT) HOURS NEEDED FOR PAIN 07/31 completed Not Available Not Available Not Available benzonatate 200 mg capsule 11/08 completed Not Available Not Available Not Available hydrocortis one 1 % topical ointment APPLY THIN LAYER AROUND MOUTH active Not Available Not Available No t Available naltrexone 50 mg tablet TAKE 1 TABLET BY MOUTH EVERY DAY active Not Available Not Available No t Available prednisone 20 mg tablet TAKE 2 TABLETS (40 MG) BY MOUTH EVERY DAY FOR 5 DAYS 03/21 completed Not Available Not Available Not Available pimecrolimu s 1 % topical cream APPLY TO IRRITATED AND ITCHY AREAS TOPICALLY TWICE DAILY NEEDED 03/21 completed Not Available Not Available Not Available Matthew Low Dose Aspirin 81 mg tablet,ashley yed release TAKE 1 TABLET BY MOUTH ONCE DAILY DIRECTED 07/03 completed Not Available Not Available Not Available triamcinolo ne acetonide 0.5 % topical ointment APPLY A THIN LAYER ON NECK (DO NOT APPLY ON FACE) active Not Available Not Available No t Available fluticasone propionate 0.005 % topical ointment RUB IN WELL TWICE A DAY ON RED AREAS OF FACE active Not Available Not Available No t Available oxycodone-a cetaminophe n 5 mg-325 mg tablet TAKE 1 TABLET BY MOUTH EVERY 4 (FOUR) HOURS NEEDED FOR PAIN 11/13 completed Not Available Not Available Not Available ofloxacin 0.3 % ear drops INSTILL 2 DROPS IN THE LEFT EAR TWICE DAILY FOR 7 DAYS active Not Available Not Available No t Available amoxicillin 875 mg tablet TAKE 1 TABLET BY MOUTH TWICE A DAY FOR 7 DAYS active Not Available Not Available No t Available nicotine (polacrilex ) 4 mg gum CHEW 1 PIECE OF GUM EVERY 2 HOURS BY ORAL ROUTE NEEDED. 11/08 completed Not Available Not Available Not Available magnesium citrate oral solution Take 5 mL every day by oral route. 07/31 completed Not Available Not Available Not Available hydroxyzine HCl 25 mg tablet TAKE 1 TO 2 TABLETS BY MOUTH 3 TIMES A DAY NEEDED 11/13 completed Not Available Not Available Not Available mupirocin 2 % topical ointment APPLY GRAM TOPICALLY TO THE AFFECTED AREA THREE TIMES DAILY FOR 7 DAYS 11/08 completed Not Available Not Available Not Available methylpredn isolone 4 mg tablets in a dose pack TAKE 6 TABLETS ON DAY 1 DIRECTED ON PACKAGE AND DECREASE BY 1 TAB EACH DAY FOR A TOTAL OF 6 DAYS 07/03 completed Not Available Not Available Not Available albuterol sulfate HFA 90 mcg/actuati on aerosol inhaler INHALE 2 PUFFS BY MOUTH 4 TIMES A DAY NEEDED FOR SHORTNESS OF BREATH OR FOR WHEEZE 03/21 completed Not Available Not Available Not Available cefdinir 300 mg capsule TAKE 1 CAPSULE BY MOUTH EVERY 12 HOURS FOR 7 DAYS 03/21 completed Not Available Not Available Not Available metformin ER 500 mg tablet,exte nded release 24 hr TAKE 1 TABLET BY MOUTH EVERY 12 HOURS 07/03 completed Not Available Not Available Not Available sertraline 50 mg tablet TAKE 1 TABLET BY MOUTH EVERY DAY FOR 30 DAYS 11/08 completed Not Available Not Available Not Available doxycycline hyclate 100 mg tablet TAKE 1 TABLET BY MOUTH TWICE DAILY FOR 7 DAYS 11/07 completed Not Available Not Available Not Available Benadryl 25 mg capsule Take 1 capsule every day by oral route as needed. active Not Available Not Available No t Available choline 05/03 completed Not Available Not Available Not Available Cough Drops 04/18 completed Not Available Not Available Not Available Benadryl 03/21 completed Not Available Not Available Not Available naltrexone active Not Available Not Av ailable Not Available Vitamin D3 11/13 completed Not Available Not Available Not Available 28 mg iron-800 mcg tablet TAKE 1 TABLET BY MOUTH EVERY DAY active Not Available Not Available No t Available OneTouch Verio test strips CHECK BLOOD SUGAR FOUR TIMES DAILY 07/03 completed Not Available Not Available Not Available OneTouch Verio Flex Meter 07/03 completed Not Available Not Available Not Available 28 mg-800 mcg tablet Take 1 tablet every day by oral route. 2024 active Not Available Not Available Not Avai lable M-Dmitry Plus 27 mg iron-1 mg tablet TAKE 1 TABLET BY MOUTH EVERY DAY active Not Available Not Available No t Available OneTouch Delica Plus Lancet 33 gauge 07/03 completed Not Available Not Available Not Available Slynd 4 mg (28) tablet TAKE 1 TABLET BY MOUTH EVERY DAY active Not Available Not Available No t Available 5HTP-tyros- glut-pheny- B6-C-chr 11/13 completed Not Available Not Available Not Available Vitals Date Recorded Body height Body mass index (BMI) Body weight Systolic And Diastolic Provider Name and Address Organization Details Last Updated DateTime 06/22/2024 165.1 cm 41.4 kg/m2 215330.5 g 116/64 mm[Hg] Sarah Kaufman [facility] [employer] 06/22/2024 11:35:55 Date Recorded Body weight Body mass index (BMI) Body height Systolic And Diastolic Provider Name and Address Organization Details Last Updated DateTime 06/26/2024 643553.47 0812 g 41.2 kg/m2 165.1 cm 118/72 mm[Hg] Altagracia Raygoza [facility] 06/26/2024 11:15:11 Date Recorded Body weight Body mass index (BMI) Body height Systolic And Diastolic Provider Name and Address Organization Details Last Updated DateTime 07/03/2024 088597.16 88 g 41.2 kg/m2 162.56 cm 122/84 mm[Hg] Karen Long [facility] 07/03/2024 11:31:24 Date Recorded Body height Body weight Systolic And Diastolic Provider Name and Address Organization Details Last Updated DateTime 07/31/2024 162.56 cm 725291.206 95 g 116/74 mm[Hg] Karen Long [facility] 07/31/2024 13:12:27 Date Recorded Body height Body mass index (BMI) Body weight Systolic And Diastolic Provider Name and Address Organization Details Last Updated DateTime 11/13/2024 162.56 cm 42.8 kg/m2 791620.66 g 116/78 mm[Hg] Altagracia Raygoza [facility] 11/13/2024 13:00:32 Social History Question Answer Notes LastModified by Organizat ion Details LastModified Time If You Are , What Was Your Level Of Alcohol Consumption Prior To ? Occasional [email or web address] Information not available 07/31/2024 Are You Blind Or Do You Have Difficulty Seeing? No Information n ot available 11/09/2023 Are You Deaf Or Do You Have Serious Difficulty Hearing? No [email or web address] Information not available 11/09/2023 What Type Of Diet Are You Following? REGULAR [email or web address] Information n ot available 11/09/2023 What Is The Highest Grade Or Level Of School You Have Completed Or The Highest Degree You Have Received? [id number] [email or web address] Information not available 11/13/2024 How Many Children Do You Have? 1 [email or web address] Information not available 07/03/2024 Are There Any Occupational Health Risks Where You Work? Mild [email or web address] Information not available 11/09/2023 What Is Your Relationship Status? [email or web address] Information not available 11/09/2023 Are You Sexually Active? Yes [email or web address] Information not available 11/09/2023 At What Age Did You Start Smoking Tobacco? 19 [email or web address] Information not available 11/09/2023 How Much Tobacco Do You Smoke? 0.5 PPD [email or web address] Information not available 11/09/2023 How Many Years Have You Smoked Tobacco? 5 [email or web address] Information not available 11/09/2023 Sex: Unknown Functional Status Question Answer Note LastModified by Organizat ion Details LastModified Time Do you use any illicit or recreational drugs? No [email or web address] Information not available 11/09/2023 Do you or have you ever used any other forms of tobacco or nicotine? No Information not available 07/31/2024 What is your level of alcohol consumption? None [email or web address] Information not available 07/31/2024 Are you currently employed? Yes [email or web address] Information not available 11/09/2023 What is your exercise level? Occasional [email or web address] Information not available 11/09/2023 Mental Status None recorded. Family History Relationship Description Onset Age of this Age Resolved Age Notes LastModified by Organization Details LastModified Time Maternal Grandmother Malignant neoplasm of ovary [email or web address] Not available 11/08 15:19:31 Maternal Grandmother Type 2 diabetes mellitus Not available 2024 12:58:05 Father Malignant neoplasm of bone [email or web address] Not available 2024 12:50:43 Father Type 2 diabetes mellitus [email or web address] Not available 2024 12:58:05 Mother Multiple [email or web address] Not available 2024 12:57:07 Mother Type 2 diabetes mellitus [email or web address] Not available 2024 12:58:05 Paternal Grandmother Dementia [email or web address] Not available 10/30 12:58:52 Medical History Condition Response Other Cancer N High Blood Pressure N Colon Cancer N Cytomegalovirus N Hyperthyroidism N MRSA N Breast Cancer N Herpes (HSV) Y Blood Transfusion N Lung Cancer N Depression N Hypothyroidism N Incontinence N Panic Attacks N Neurological Disorder N Deep Vein Thrombosis N Anxiety Disorder N Autoimmune disease N Arthritis N Tuberculosis/Positive PPD N Shingles N Polycystic Ovarian Syndrome N Infertility N Cervical Cancer N Hematuria N Chlamydia N Stroke N Varicosities N Seasonal allergies N Crohn's Disease N Alzheimer's/Dementia N COPD/Emphysema N Endometriosis N HPV/Genital Warts N IBS (Irritable Bowel Syndrome) N History of Abnormal Pap N High Cholesterol N Liver Disease N Kidney Infection N Fibromyalgia N Ulcer N Kidney Disease N HIV N Gallbladder disease N Sickle Cell Disease/Trait N Von Willebrand disease N ADD/ADHD N Eating Disorder N Anemia N Diabetes Mellitus (non-insulin dependent ) N Multiple Sclerosis N Ovarian Problems N Gonorrhea N Frequent Urinary Tract infections N Osteopenia N Headaches/migraines N GERD (reflux) N Ovarian Cancer N Diabetes (insulin dependent) N Seizures/Epilepsy N Breast Problems N Fibroids N Asthma N Heart Attack N Lupus N Endometrial Cancer N Rubella N Blood Clotting Disorder N Bipolar Disorder N Diabetes Mellitus (during ) N Ulcerative Colitis N Hepatitis N Heart Disease N Pulmonary Embolism N RPR N Chicken Pox N Osteoporosis N Gynecological History Statement/Question Response Flow Light Date of last HPV 11/13/2024 Date of LMP 11/09/2024 HPV Vaccine N Duration of Flow (days) 4 Most Recent Mammogram Current Control Method Withdrawal Age at Menarche 11 If Post Menopausal, Age at Menopause Date of Last Colonoscopy Most Recent Bone Density Frequency of Cycle (Q days) 28 Date of Last Pap Smear 11/13/2024 Obstetrics History GPAL:G 3 P 1 0 2 1 Type Value Full Term 1 Induced 2 Living 1 Total 3 Past Encounters Encounter ID Performer Location Encounter Start Date Encounter Closed Date Diagnosis/Indication Diagnosis SNOMED-CT Code Diagnosis ICD10 Code Diagnosis IMO Codes Diagnosis Note [id number] PAU Rubio [facility] [address] [place] [address] 11/09/2023 15:07:59 11/09/2023 15:36:45 test positive 900789693 Z32.01 Ultrasound today with FHT's of 104 and ALBINA of 07/05/24. Will use ultrasound dating d/t 3 week difference . Currently 5w6d Amenorrhea 37757982 N91. 2 UPT in office is positive. Pt educated on dietary recommenda tions, to take PNV daily, on Threatened Ab precaution s, and when to notify HCP/go to ER. Plan to F/U in 4 weeks for NOB visit. Mixed anxi ety and depressive disorder 357858684 F41.9 F32.A Patient states she is doing fine and does not want interventi on Herpes labialis 1174296 B00.1 Last cold sore years ago [id number] ALTAGRACIA LEUNG NP [facility] [address] [place] [address] 11/23/2023 15:03:51 11/24/2023 14:35:42 [id number] O36.80X1 with inconclusi ve viability, fetus 1 Normal 8588103 2 Z34.91 Pt comes in today for a New/First OB visit.Gest ation: 7w 6dEDD: 07/05/2024 -- PMH: denies any-- Medication s: Taking daily PNV-- Previous OB History: 2 abortions at age 13 & 14.-- Mom/Sister s with hx of Pre-Eclamp rocael: no-- History of Genital HSV: no-- Genetic Questions in OB Episode Done-- Accepts UNITY. Would like to know gender. Discussed logging on to the [employer] portal to find Gender Results - to be obtained at next appt when further along.-- PAP - be obtained PP -- Low dose Aspirin : 81 mg/day prophylaxi s is recommende d in women at high risk of preeclamps ia. Recommende d to be initiated at 12 weeks gestation. Risk Factors:(o ne present) Previous with Preeclamps ia or GHTN, Multifetal , CHTN, Diabetes, Chronic kidney disease, Autoimmune disease(tw o present)Pr imiparity( or interval of >10 years between pregnancie s),Obesity (BMI >30), Mother or sister with preeclamps ia,older than 35, Race, Previous with adverse outcome -- First Trimester Diabetes Screening: Recommende d. Screened with: hemoglobin A1CBMI >25 with one or more Risk Factors:-P hysical inactivity -PCOS-Firs t-degree Relative with DM-Suspect ed insulin resistance -GDM in prior OR previously given to >9lb baby-High risk ethnicity (, , , South or East (BMI >23), )- Elevated cholestero l levels (HDL <35, Triglyceri de >250)-Elev ated HbA1c (>5.7%)-Ca rdiovascul ar disease-Hy pertension POC-- NOB labs done today--Acc epts UNITY - Needs to be obtained at next visit-- PAP - will obtain PP-- Low dose ASA recommende d to start at 12wks-- Pre-Pregna ncy BMI: 39.6-- RTC 4 weeks Guide: Given and reviewed. Toxoplasmo sis precaution s reviewed. Reviewed office visit schedule during . Reviewed Quickening and normal FHTs.RTC - 4wks to have unity drawn Gestation period, 7 weeks 81074168 Z3A.01 screening 2437 16470 Z36.9 Depression screening 171 136357 Z13.31 see intake [id number] JAMIA DENT, DO [facility] [address] [place] [address] 12/21/2023 14:56:04 12/21/2023 16:59:27 Normal 18929366 Z34.82 5716233 Gestation period, 11 weeks 01167579 Z3A.11 1407221 screening 2437 72449 Z36.9 [id number] Carrier de tection, molecular genetics 0804091 Z14.8 [id number] JAMIA DENT DO [facility] [address] [place] [address] 01/18/2024 14:04:23 01/18/2024 15:57:55 Normal 73994499 Z34.82 6016115 Gestation period, 15 weeks 8434068 Z3A.15 2155394 screening 2437 99208 Z36.0 35022473 [id number] Elina Morrow, MITRA [facility] [address] [place] [address] 02/22/2024 16:40:52 02/23/2024 11:22:53 Normal 23468422 Z34.82 1147227 Gestation period, 21 weeks 41297960 Z3A.21 1924150 screening for malformation 366210874 Z36.3 [id number] Ultrasound findings reviewed w/parents. The pt was advised that ultrasound does not allow detection of all structural or chromosoma l abnormalit ies. Discussed possible placenta accreta [id number] MICHAEL CHOWDHURY NP [facility] [address] [place] [address] 03/07/2024 16:35:53 03/10/2024 07:21:08 Normal 28301102 Z34.90 [id number] Pt is here for a NANCY appointmen t. She is taking vitamins. She has no complaints or questions. Reports feeling movement. Denies vaginal bleeding, abdominal cramps, N/V, contractio ns, or LOF. Denies headache, vision changes, swelling of hands or face, and epigastric pain. Discussed PTL and precaution s given. There are no identifiab le risk factors for pre-term labor. Pneumonia 224159647 J18. 9 [id number] discussed return ER precaution s. [id number] [facility] [address] [address] 03/21/2024 15:00:20 03/26/2024 10:39:03 anatomy study 199626177 Z36.2 [id number] Gestation period, 24 weeks 301723811 Z3A.24 6338940 Normal 7773135 2 Z34.82 9533230 [id number] [facility], [address] [place] [address] 04/18/2024 12:11:31 04/18/2024 13:52:37 [id number] O36.80X1 Normal 4971997 2 Z34.83 4982510 screening 2437 09881 Z36.89 Gestation period, 28 weeks 21574125 Z3A.28 4358735 [id number] TERRI DAVIS, [address] [place] [address] 05/03/2024 09:15:58 05/03/2024 10:36:42 Normal 97626555 Z34.83 [id number] Pt is here for a NANCY appointmen t. She is taking vitamins. She has no complaints or questions. Denies vaginal bleeding, abdominal cramps, N/V, contractio ns, and LOF. Denies headache, vision changes, swelling of hands or face, and epigastric pain. Reports feeling movement. Discussed Movement Counts. GBS: @36 weeks Discussed PTL and precaution s given. There are no identifiab le risk factors for pre-term labor. Gestationa l diabetes mellitus 89637381 O24.410 32796489 --GDM education completed. Discussed diet starchy vs non-starch y carbs. Good vs bad foods. Carb counting and the plate method explained. --Discusse d exercise.- -Reviewed QID BS checks (Fasting and 2 hrs after first bite of meal) and normal values.--I nstructed to not skip meals and eat snacks in btwn meals.--BS log explained. --Reviewed risk in with GDM, including LGA baby, preeclamps ia, GHTN, polyhydram nios, and stillbirth . risks include but are not limited to hypoglycem ia, hyperbilir ubinemia, hypocalcem ia, and respirator y distress-- Check CDC and ADA website for further info Gestation period, 31 weeks 06120185 Z3A.31 0044462 [id number] PAU ISLAS-BC [facility] [address] [place] [address] 05/09/2024 09:30:28 05/09/2024 13:44:22 Gestation period, 31 weeks 68447842 Z3A.31 9502954 Gestationa l diabetes mellitus 00367773 O24.410 EFW 55%, ADRIANA WNL. Good breathing, tone, and movement. Anterior placenta. care status 24 0471662 Z34.93 19163059 Pt is here for a NANCY appointmen t. She is taking vitamins. She has no complaints or questions. Denies vaginal bleeding, abdominal cramps, N/V, contractio ns, and LOF. Denies headache, vision changes, swelling of hands or face, and epigastric pain. Reports feeling movement. Discussed Movement Counts. Discussed PTL and precaution s given. There are no identifiab le risk factors for pre-term labor. Reminded pt that I do not delivery babies. Recommende d pt see a Delivery provider next visit so she has the chance to meet everyone. [id number] ALTAGRACIA LEUNG NP [facility] [address] [place] [address] 05/16/2024 14:24:35 05/21/2024 11:20:22 Gestation period, 32 weeks 2687080 Z3A.32 6174514 Pt is here for a NANCY appointmen t. She is taking vitamins. She has no complaints or questions. Denies vaginal bleeding, abdominal cramps, N/V, contractio ns, and LOF. Denies headache, vision changes, swelling of hands or face, and epigastric pain. Reports feeling movement. Discussed Movement Counts. Education provided on Tdap, COVID, RSV and Flu vaccineRho Addi: Not neededPlan melisa to deliver @ unsure. [facility] or maybe [facility] ntraceptio n: unsureMode of Feeding: breastPedi : has one picked out GBS: will collect at 36wk36 week HSV suppressio n: N/A Discussed PTL and precaution s given. There are no identifiab le risk factors for pre-term labor. <37>37 weeks: Discussed Labor Precaution s. Follow up in L&D if experienci ng decreased movement, leaking fluid, or regular uterine contractio ns increasing in frequency and/or intensity. Multigravida 569532395 Z 34.83 37763083 Gestationa l diabetes mellitus 08849008 O24.419 90091317 Constipation 74684315 K5 9.00 [id number] ALTAGRACIA LEUNG, KANWAL [facility] [address] [place] [address] 05/30/2024 15:14:56 05/30/2024 17:53:24 Gestation period, 34 weeks 67415889 Z3A.34 3580358 Pt is here for a NANCY [facility] t. She is taking vitamins. She has no complaints or questions. Denies vaginal bleeding, abdominal cramps, N/V, contractio ns, and LOF. Denies headache, vision changes, swelling of hands or face, and epigastric pain. Reports feeling movement. Discussed Movement Counts. Discussed pt with Dr. Barrera & he recommende d the following. BMI 40.5BPP - weekly if not metforminB PP & NST - - - 2wkly testing if taking metformin. I was only able to review 2 days of BS, she forgot to bring her sugar logs & says that she has all her sugar logs filled up. I gave her plenty more sheets to use to write her BS down.She tells me that she has not started the metformin, but has picked it up.She has fatty liver so doesn't want to take metformin to destroy/hu rt her liver. I told her that I understand & I hear her, but at the same time she needs to also think about the safety of her baby. Education provided on Tdap, COVID, RSV and Flu vaccineRho Addi: Not neededPlan melisa to deliver @ unsure of where, [place] is close to where they liveContra ception: she doesn't believe in contracept ionPedi: [facility] leMode of Feeding: Breast GBS: will collect at 36wks.36 week HSV suppressio n: N/A Discussed PTL and precaution s given. There are no identifiab le risk factors for pre-term labor. <37>37 weeks: Discussed Labor Precaution s. Follow up in L&D if experienci ng decreased movement, leaking fluid, or regular uterine contractio ns increasing in frequency and/or intensity. Approximat radha forty five minutes spent with patient in consultati on (>50% face-to-fa ce). Patient labs and notes were reviewed. Patient questions were answered. Additional patient care was coordinate d. Grand multipara 05978799 O09.43 [id number] Gestationa l diabetes mellitus 52154179 O24.419 11976213 [id number] JAMIA DENT DO [facility] [address] [place] [address] 06/06/2024 14:10:51 06/11/2024 15:10:55 Gestational diabetes mellitus 51662441 O24.415 84617375 Gestation period, 35 weeks 13064614 Z3A.35 8891134 care status 24 9701558 Z34.93 73188821 [id number] JAMIA DENT DO [facility] [address] [place] [address] 06/12/2024 11:35:03 06/12/2024 14:17:57 Elderly primigravida 34072692 O09.519 195413 Gestation period, 36 weeks 49791232 Z3A.36 3312812 Gestationa l diabetes mellitus 20178335 O24.415 49069266 screening 2437 35851 Z36.85 [id number] Elina Morrow CNM [facility] [address] [place] [address] 06/15/2024 10:56:19 06/15/2024 12:23:53 Gestation period, 37 weeks 09957298 Z3A.37 3978577 Gestationa l diabetes mellitus 76224221 O24.415 86125498 Pt has not improved diet. Taking metformin. Reviewed diet with pt. Pt's appears unhappy about medication management and states that nothing has changed since pt was put on medication . Informed them that next option would be insulin but pt states under no circumstan michael will she take insulin. continues to argue that metformin is not working and we are just pushing medication on them. I informed him that dietary changes will also have to made in order to see improvemen t. Risks of uncontroll ed diabetes reviewed.E xplained to pt nd that dietary changes are integral part of diabetes management . He states they don't have money to buy different food. Multigravi da of advanced maternal age 702280198 O09.523 20857103 Blood pres sure above reference range 22996540 R03.0 124870 [id number] Debra munson [facility] [address] [place] [address] 06/19/2024 11:42:44 06/19/2024 14:25:49 Gestational diabetes mellitus 60275387 O24.415 28725365 Gestation period, 37 weeks 47847357 Z3A.37 8387822 Thrombocyt openic disorder 024036318 D69.6 97427 [id number] Vita Adame MD [facility] [address] [place] [address] 06/22/2024 11:07:29 06/22/2024 13:30:41 Multigravida of advanced maternal age 927340482 O09.523 67512810 Gestationa l diabetes mellitus 76081038 O24.415 64583577 Gestation period, 38 weeks 11545283 Z3A.38 7729497 Benign ges tational thrombocytopenia 521653366 O99.113 D69.6 17880133 [id number] Vita Adame MD [facility] [address] [place] [address] 06/26/2024 10:39:27 06/26/2024 12:32:59 Multigravida of advanced maternal age 837693070 O09.523 [id number] The patient was initially evaluated by ANTHONY Freeman, who completed the history examinatio n, and preliminar y assessment . I, Vita Adame MD, entered the room to review and discuss the care plan with the patient. After reviewing the specific findings and documentat ion provided by Terri, I confirmed the diagnosis and care plan, addressing any additional concerns or questions raised by the patient. The final plan of care was developed collaborlen jj and has been documented accordingl y. Gestationa l diabetes mellitus 27112326 O24.415 62296131 Gestation period, 38 weeks 74672015 Z3A.38 8416137 Benign ges tational thrombocytopenia 314401388 O99.113 D69.6 [id number] Sheree Alcantara MD [facility] h [address] [place] [address] 07/03/2024 11:23:30 07/16/2024 13:16:16 Postoperative visit 535591527 Z09 post op 1 wk from primary c section, doing wellRTC 4 - 5 wks [id number] Sheree Alcantara MD [facility] [address] [place] [address] 07/31/2024 12:43:34 08/01/2024 17:51:58 state 20304536 Z39.2 doing well without any complicati ons experience dDelivered by scheduled primary c section.Di scussed that she is due for a pap smear and advise Well woman exam to be done in 3 monthsRevi ewed options for contracept ion and she declines for now, stating abstinence .Advised that with formula feeding, she is fertile and would be at risk for another , rec to use condoms when sexual activity resumes Depression screening 171 288520 Z13.31 See Screening Section for EPDS Questionna samantha ResultNo depression [id number] MICHAEL CHOWDHURY NP [facility] h [address] [facility] [place] [address] 11/13/2024 12:46:38 11/23/2024 10:54:34 Gynecologic examination 23408231 Z01.419 34 y.o. here for annual exam. - Pap / HPV cotesting today, discussed natural course of HPV infection, ASCCP guidelines . Plan to repeat cotesting in- Contracept rashaad counseling : Discussed options including OCPs, NuvaRing, Nexplanon, hormonal and copper IUDs. Discussed risks, benefits, and side effects of each option, including risk of VTE with hormonal contracept ion and uterine perforatio n with IUD.- Routine labs done with PCP- Mammo at age 40, no increased risk- Depression screen NEG- BMI counseling , diet and exercise reviewed- RTO for annual or PRN Screening for malignant neoplasm of cervix 983075863 Z12.4 Depression screening 171 350466 Z13.31 See Intake Screening - PHQ Contracept ion education [id number] Z30.09 Contracept rashaad counseling : Discussed options including OCPs, NuvaRing, Nexplanon, hormonal and copper IUDs. Discussed risks, efficacy, noncontrac eptive benefits, and side effects of each option, including risk of VTE with hormonal contracept ion and uterine perforatio n, expulsion, infection with IUD. Health Concerns Section Related Observation LastModified by Organization Detai ls LastModified Time None Recorded Concern Status LastModified by Organization Details LastModified Time None Recorded Advance Directives Directive None Recorded Payers Insurance Date Sequence Insurance Name Policy Number Policy Parra Covered Member ID Parra Member ID Guarantor Name 10/12/2024 2 [place] Charity Maxs [id number] Charity Dar 12/20/2024 2 [place] Charity Dar [id number] Charity Dar 11/23/2023 2 [facility] [employer] [facility] [id number] Jose Maria Dodge [id number] Charity Dar 09/10/2024 3 WEB-TPA Charity Maxs [id number] Charity [place] 10/17/2024 1 [employer] [email or web address] - [facility] (PPO) [id number] Charity Terrychins [id number] Charity Dar 10/15/2024 1 UMR [id number] Charity Dodge [id number] Charity Dodge 11/23/2024 1 [facility] (MEDICAID HMO) [id number] Charity Dodge [id number] Charity Dodge Notes Date Note Type Note Provider Name and Address Organization Details Recorded Time 06/22/2024 text/html ROS as noted in the HPI Patient is here today for a routine OB visit. She is currently at 38.1 weeks gestation. vitamins: yes She has felt movement. She denies any complaints of the presence of vaginal bleed, leaking fluid, abdominal cramps, nausea, vomiting, headache or visual disturbances. Vita Adame MD [address] [place] [address], [phone], [employer] [facility] 06/22/2024 13:59:33 06/26/2024 text/html ROS as noted in the HPI Patient is here today for a routine OB visit. She is currently at 38.5 weeks gestation. vitamins: yes She has felt movement. She denies any complaints of the presence of vaginal bleed, leaking fluid, abdominal cramps, nausea, vomiting, headache or visual disturbances. Vita Adame MD [address] [place] [address], [phone], [facility] 06/28/2024 07:25:30 07/03/2024 text/html Elinor comes in for a 1 wk post op check from her c section delivery.She had a primary c section due to concerns over macrosomia and gestational diabetes which required metformin.C section was done without complications and she was discharged POD 3Pt. wants to know if there is anything to dry up breast since she stop . EPDS is 0 Sheree Alcantara MD [address] [place] [address], [phone], [facility] [employer] 07/16/2024 00:41:31 07/31/2024 text/html Elinor comes in for a 6 wk post op check from her c section delivery.She had a primary c section due to concerns over macrosomia and gestational diabetes which required metformin.C section was done without complications and she was discharged POD 3Pt. is doing well and has concerns.Baby is doing well also.EPDS is 0 Sheree Alcantara MD [address] [facility], [place], [phone], [facility] [employer] 08/01/2024 17:50:31 11/13/2024 text/html Annual GYNReport ed by PatientHistoryFor history, patient reportsno gynecologic complaints.Genitourina ry symptomsFor menstrual cycle, patient reportsnormal menses. For urinary symptoms, patient reportsno hematuriaandno incontinence. For vulva, patient reportsno genital lesion. For vagina, patient reportsnormal vaginal discharge.Breast symptomsFor breast, patient reportsno breast pain,no breast lump, andno nipple discharge.Contraceptio nFor current contraception, patient reportswants to discuss contraceptive options.Endocrine symptomsFor sexual complaints, patient reportsno sexual complaints,no pain during intercourse, andnormal libido. For menopausal symptoms, patient reportsno menopausal symptomsandnormal vaginal lubrication.Psychologi erica symptomsFor psychological symptoms, patient reportsno depression,no anxiety, andno pmdd.Preventative measuresFor preventive measures, patient reportsencourage self breast examination,encourage regular exercise, andencourage regular mammograms starting age 40. RENE-7 score is 0. PHQ-9 score is 0. MICHAEL CHOWDHURY NP [address] [facility], [place], [phone], [facility] [employer] 11/22/2024 22:18:06 OBGyn Episode Ob Episode Information Episode Created Date Number of Fetuses Patient Bloodtype Patient rh Status Prepregnancy Weight lbs Domestic Partner Domestic Partner Phone Father Name [employer] Mixer Status 11/23/19 24 1 A Positive CLOSED Fetus Data First Name Last Name Admitted to NICU Weight (g) Sex Living Outcome Pediatric Complications Fetus ID Race Codes Race Delivery Type Pati false 3600.38 65 F Full Term [id number] White Primary Problems Problem Notes Problem Name Start Date End Date Resolution Snomed Code Not e Thrombocytopenic disorder 06/19/20[id number] 103, medrol dose pack Rx 06/19 repeat CBC at 38 week apt Gestational diabetes mellitus 05/09/2024 [id number] Metformin 1000 am, 500 qhs History of alcohol abuse [id number] sober since 2018 Chronic hepatitis C [id number] received tx in 2020 from [facility] Albina Calculation Initial Albina Date Initial Exam Date Initial Exam Provider Initial Ultrasound Date Last Menstrual Period Date Ultra Sound Weeks Gestation 07/05/2024 11/23/2023 11/09/2023 09/10/2023 5 Eighteen To Twenty Week Albina Update Ultra Sound Date Fundal Height At Umbil Quickening Date Ultra Sound Latest Weeks Gestation Final Albina Confirmed By Final Albina Confirmed Date Final Albina Date Ultra Sound Latest Days Gestation 0 0 Pre- Flowsheet Flowsheet Date 11/23/2023 Muhammad Score Blood Edema Fundus Height Fundus Units Glucose Ketones Leukocytes Nitrite Labor Signs Protein Cervic Dilation Cervic Effacement Cervic Station none none Type Weight in lbs Pre/Post Dialysis Refused With clothes 229.9769509207 BP Diastolic BP Location Tested BP Systolic BP Type 68 L arm 112 sitting Fetus Heart Rate Present A 179 Present Fetus Movement A No Comments No OB complaints. NOB labs d rawn today. Discussed starting an ASA 81mg at 12wks. Will have pap performed PP. RTC 4wks. [place] to be drawn at that time. Flowsheet Date 12/21/2023 Muhammad Score Blood Edema Fundus Height Fundus Units Glucose Ketones Leukocytes Nitrite Labor Signs Protein Cervic Dilation Cervic Effacement Cervic Station Type Weight in lbs Pre/Post Dialysis Refused With clothes 234.603768202347 BP Diastolic BP Location Tested BP Systolic BP Type 76 122 sitting Fetus Heart Rate Present A 155 Fetus Movement Comments no ob complaintsDiscussed se eing MFM as consult for chronic HCVUnity todayRTO in 4 weeks Flowsheet Date 01/18/2024 Muhammad Score Blood Edema Fundus Height Fundus Units Glucose Ketones Leukocytes Nitrite Labor Signs Protein Cervic Dilation Cervic Effacement Cervic Station Type Weight in lbs Pre/Post Dialysis Refused Weight 233.083508694359 BP Diastolic BP Location Tested BP Systolic BP Type 74 130 Fetus Heart Rate Present A 155 Fetus Movement Comments no ob complaints. AFP todayp t agreeable to see MFM for consult regarding chronic HCVpt expressed they are homeless, living with family, but are struggling financially; discussed resources for aid. RTO in 4 weeks for anatomy scan. Flowsheet Date 02/22/2024 Muhammad Score Blood Edema Fundus Height Fundus Units Glucose Ketones Leukocytes Nitrite Labor Signs Protein Cervic Dilation Cervic Effacement Cervic Station Type Weight in lbs Pre/Post Dialysis Refused With clothes 237.1167658086 BP Diastolic BP Location Tested BP Systolic BP Type 70 110 sitting Fetus Heart Rate Present A 159 Fetus Movement A Yes Comments Anatomy incomplete. Possible placenta accreta. F/u in 4 wks Flowsheet Date 03/07/2024 Muhammad Score Blood Edema Fundus Height Fundus Units Glucose Ketones Leukocytes Nitrite Labor Signs Protein Cervic Dilation Cervic Effacement Cervic Station Type Weight in lbs Pre/Post Dialysis Refused Weight 232.652449927628 BP Diastolic BP Location Tested BP Systolic BP Type 68 120 sitting Fetus Heart Rate Present A 146 Present Fetus Movement A Yes Comments Patient with recent diagnosi s of PNA. Patient with ABX and albuterol inhaler use. reviewed ER precautions and correct inhaler use. to keep appt for 2 wks. Flowsheet Date 03/21/2024 Muhammad Score Blood Edema Fundus Height Fundus Units Glucose Ketones Leukocytes Nitrite Labor Signs Protein Cervic Dilation Cervic Effacement Cervic Station Type Weight in lbs Pre/Post Dialysis Refused With clothes 226.283804561246 BP Diastolic BP Location Tested BP Systolic BP Type 65 120 sitting Fetus Heart Rate Present Fetus Movement Comments Anatomy complete, SOB greatl y improved, from prior visit. Flowsheet Date 04/18/2024 Muhammad Score Blood Edema Fundus Height Fundus Units Glucose Ketones Leukocytes Nitrite Labor Signs Protein Cervic Dilation Cervic Effacement Cervic Station none neg Type Weight in lbs Pre/Post Dialysis Refused With clothes 236.655355642539 BP Diastolic BP Location Tested BP Systolic BP Type 60 120 sitting Fetus Heart Rate Present A 140 Fetus Movement A Yes Comments no ob concerns very happy wi ht , has good dupport, 3rd tri labs today Flowsheet Date 05/03/2024 Muhammad Score Blood Edema Fundus Height Fundus Units Glucose Ketones Leukocytes Nitrite Labor Signs Protein Cervic Dilation Cervic Effacement Cervic Station none 35 cm none none neg Type Weight in lbs Pre/Post Dialysis Refused With clothes 240.899538544359 BP Diastolic BP Location Tested BP Systolic BP Type 76 120 sitting Fetus Heart Rate Present A 129 Fetus Movement A Yes Comments GDM teaching today. Pt has n ot gotten supplies yet, were not at pharmacy. Order resent today. No OB complaints. Will RTC in 1 week for growth and reviewed glucose logs. Flowsheet Date 05/09/2024 Muhammad Score Blood Edema Fundus Height Fundus Units Glucose Ketones Leukocytes Nitrite Labor Signs Protein Cervic Dilation Cervic Effacement Cervic Station none Type Weight in lbs Pre/Post Dialysis Refused With clothes 238.507332035282 BP Diastolic BP Location Tested BP Systolic BP Type 80 128 Fetus Heart Rate Present A 152 Present Fetus Movement A Yes Comments Growth today. EFW 55%, ADRIANA W NL. Good breathing, tone, and movement. Anterior placenta. Glucose logs checked today. A couple elevated 1 hours due to diet- education given. Pt reports she is trying very hard on managing diet. Flowsheet Date 05/16/2024 Muhammad Score Blood Edema Fundus Height Fundus Units Glucose Ketones Leukocytes Nitrite Labor Signs Protein Cervic Dilation Cervic Effacement Cervic Station none none none neg Type Weight in lbs Pre/Post Dialysis Refused With clothes 240.949820388528 BP Diastolic BP Location Tested BP Systolic BP Type 70 124 sitting Fetus Heart Rate Present A 132 Present Fetus Movement A Yes Comments No OB complaints today. Had some constipation & rectal bleeding. Will send in magnesium citrate. Checking her sugars 2hrs after. Most all of her BS are high. Scanned into her chart. Fasting are WNL, sugars 2hr are 105 - 200. Educated importance of starting metformin BID. Her was against it immediately. I discussed why it is important to help get her sugars under control. Also, gave risk factors of stillbirth. Order given to receive Tdap & wants to receive RSV. Thinks she is going to pass on the flu vaccine. Denies LOF, vaginal bleeding, cramping/ctx. PTL precautions discussed. She's unsure of place of delivery, MOC - unsure, MOF - breast, pedi picked out. RTC - 2wks. Flowsheet Date 05/30/2024 Muhammad Score Blood Edema Fundus Height Fundus Units Glucose Ketones Leukocytes Nitrite Labor Signs Protein Cervic Dilation Cervic Effacement Cervic Station none none none neg Type Weight in lbs Pre/Post Dialysis Refused With clothes 243.061690628957 BP Diastolic BP Location Tested BP Systolic BP Type 76 122 sitting Fetus Heart Rate Present A 159 Present Fetus Movement A Yes Comments No OB complaints today. Only have 2 days of BS to review. Has picked up the metformin but hasn't started & she still isn't sure she is going to take like prescribed. Is going to send her BS logs in via the portal for me to review. After reviewing has quite a few that are elevated. Had a long discussion regarding starting metformin. Counseled at length of having GDM & uncontrolled sugars of LGA, shoulder dystocia, baby to possibly have seizures & stillbirth. Denies any LOF, vaginal bleeding, cramping/ctx. PTL precautions discussed. Anterior placenta, BPP 12/07, ADRIANA WNL. Showed a picture of a skin tag by rectum, discussed to leave it alone. She asked about having intercourse & I edcuated that it could stir things up & cause contractions, she then asked if they could still have anal. Needs twice weekly testing BPP & NST. Next week being 36wks needs a growth. Flowsheet Date 06/06/2024 Muhammad Score Blood Edema Fundus Height Fundus Units Glucose Ketones Leukocytes Nitrite Labor Signs Protein Cervic Dilation Cervic Effacement Cervic Station Type Weight in lbs Pre/Post Dialysis Refused With clothes 243.136944936073 BP Diastolic BP Location Tested BP Systolic BP Type 80 124 sitting Fetus Heart Rate Present A 149 Fetus Movement A Yes Comments bpp: 12/07no ob complaints. EF W: 7 lbs 8oz (96%) and AC>99%. Pt has not yet started metformin fo fear she would need it life long. Reviewed BG log, and majority was within normal limits however informed patient that she needs to start metformin to help have better control as she has refused inuslin. Futhermore, had long discussion regarding currently EFW and projected EFW at 39 and 40 weeks > 4500g. Due to this I have recommended a primary due to increased risk of shoulder dystocia with vaginal delivery. Explained the and maternal risks of shoulder dystocia with vaginal delivery including PPH, extensive lacerations, brachial plexus injuries, clavicular/humeral fractures, and the rare hypoxic brain injury that we are unfortunately unable to ascertain fdc progonsis. Pt and plan to return next week with decision regarding IOL @ 39w vs Flowsheet Date 06/12/2024 Muhammad Score Blood Edema Fundus Height Fundus Units Glucose Ketones Leukocytes Nitrite Labor Signs Protein Cervic Dilation Cervic Effacement Cervic Station none neg Type Weight in lbs Pre/Post Dialysis Refused 246.399116995945 BP Diastolic BP Location Tested BP Systolic BP Type 72 118 Fetus Heart Rate Present A 160 Fetus Movement A Yes Comments NST: nonreactive, tachycardi ac with small variables. BPP: 8/8BG log reviewed: lunch and dinners majority not in range. mainly due to dietary choices. had long discussion about decreasing rice, pasta, and breads. Will increase metformin to 1000 mg qam and 500 mg qhsGBS collectedWill [facility] Flowsheet Date 06/15/2024 Muhammad Score Blood Edema Fundus Height Fundus Units Glucose Ketones Leukocytes Nitrite Labor Signs Protein Cervic Dilation Cervic Effacement Cervic Station Type Weight in lbs Pre/Post Dialysis Refused Weight 245.58001147564 BP Diastolic BP Location Tested BP Systolic BP Type 82 L arm 140 80 128 sitting Fetus Heart Rate Present A 151 Fetus Movement A Yes Comments No OB concerns. Glucose log reviewed. Fasting normal range. 4 elevated postprandial values 132-151. Clearly diet related. BPP 8/8. See comments in A/P Flowsheet Date 06/19/2024 Muhammad Score Blood Edema Fundus Height Fundus Units Glucose Ketones Leukocytes Nitrite Labor Signs Protein Cervic Dilation Cervic Effacement Cervic Station Type Weight in lbs Pre/Post Dialysis Refused With clothes 249.660938316133 BP Diastolic BP Location Tested BP Systolic BP Type 60 118 sitting Fetus Heart Rate Present Fetus Movement Comments Plt 103 will start on Medrol dose pack discussed with Dr Alcantara. NST reactive, scheduled for BPP on Tuesday Flowsheet Date 06/22/2024 Muhammad Score Blood Edema Fundus Height Fundus Units Glucose Ketones Leukocytes Nitrite Labor Signs Protein Cervic Dilation Cervic Effacement Cervic Station none none none neg Type Weight in lbs Pre/Post Dialysis Refused With clothes 249.771124598100 BP Diastolic BP Location Tested BP Systolic BP Type 64 116 sitting Fetus Heart Rate Present A 135 Fetus Movement A Yes Comments NST reactive, Sharon irregular contractions. BPP 8/8. BS are overall well contolled. On medrol dosepack. Repeat cbc today. patient and her would like to avoid c/s if possible. Discussed repeat EFW next Tuesday. Flowsheet Date 06/26/2024 Muhammad Score Blood Edema Fundus Height Fundus Units Glucose Ketones Leukocytes Nitrite Labor Signs Protein Cervic Dilation Cervic Effacement Cervic Station none none neg Type Weight in lbs Pre/Post Dialysis Refused 247.589351133204 BP Diastolic BP Location Tested BP Systolic BP Type 72 118 Fetus Heart Rate Present A 135 Fetus Movement A Yes Comments Repeat EFW today. Discussed findings. Recommend proceeding with primary c/s as scheduled. Discussed platelet count today. Going for pretesting at [facility]. Will contact patient if further steroids are needed. Also discussed with Dr. Alcantara. Flowsheet Date 07/03/2024 Muhammad Score Blood Edema Fundus Height Fundus Units Glucose Ketones Leukocytes Nitrite Labor Signs Protein Cervic Dilation Cervic Effacement Cervic Station Type Weight in lbs Pre/Post Dialysis Refused 240.436500068461 BP Diastolic BP Location Tested BP Systolic BP Type 84 122 sitting Fetus Heart Rate Present Fetus Movement Comments Flowsheet Date 07/31/2024 Muhammad Score Blood Edema Fundus Height Fundus Units Glucose Ketones Leukocytes Nitrite Labor Signs Protein Cervic Dilation Cervic Effacement Cervic Station Type Weight in lbs Pre/Post Dialysis Refused 235.149234943546 BP Diastolic BP Location Tested BP Systolic BP Type 74 116 sitting Fetus Heart Rate Present Fetus Movement Comments Menstrual History Last Menstrual Date Menses Monthly On Bcp Conception Prior Menses Frequency Hcg Plus Date Menarche Onset Age 0509/10/2023 Genetic Screening And Infection History Question Response Note Prior GBS-infected child false Personal or Family History o f Congenital Heart Defect false Patient Or Partner Has Histo ry Of Genital Herpes false PT has hx of HSV 1, may have a cold sore once a year. History of HIV false Maternal Metabolic Disorder (eg, Type 1 Diabetes, PKU) true Patient's Age Will Be 35 Yea rs Or Older At Estimated Date of Delivery true Personal or Family History o f Neural Tube Defect (Meningomyelocele, Spina Bifida, Or Anencephaly) false History of Hepatitis false Genetic Carrier Screen positive false not that she's aware. Recurrent Loss, Or A Stillbirth false 2 abortions at 13 yo & 14 yo Delivery Information Delivery Date Delivery Type Labor Anesthesia Weeks Gestation Incision Type Labor Labor Length Hrs Delivered By Post Complications Tubal Sterilization Discharge Date Comments 5 None Regional-Sp inal 39 Low Transvers e Sheree Alcantara MD None 07/01/2024 Discharge Information Feeding Method Contraceptive Method Maternal HG B and HCT Levels Bottle none Ob Episode Information Episode Created Date Number of Fetuses Patient Bloodtype Patient rh Status Prepregnancy Weight lbs Domestic Partner Domestic Partner Phone Father Name [employer] Mixer Status 05/29/19 1 CLOSED Fetus Data First Name Last Name Admitted to NICU Weight (g) Sex Living Outcome Pediatric Complications Fetus ID Race Codes Race Delivery Type , Induced [id number] Albina Calculation Initial Albina Date Initial Exam Date Initial Exam Provider Initial Ultrasound Date Last Menstrual Period Date Ultra Sound Weeks Gestation 0 Eighteen To Twenty Week Albina Update Ultra Sound Date Fundal Height At Umbil Quickening Date Ultra Sound Latest Weeks Gestation Final Albina Confirmed By Final Albina Confirmed Date Final Albina Date Ultra Sound Latest Days Gestation 0 0 Menstrual History Last Menstrual Date Menses Monthly On Bcp Conception Prior Menses Frequency Hcg Plus Date Menarche Onset Age Delivery Information Delivery Date Delivery Type Labor Anesthesia Weeks Gestation Incision Type Labor Labor Length Hrs Delivered By Post Complications Tubal Sterilization Discharge Date Comments 0 Discharge Information Feeding Method Contraceptive Method Maternal HG B and HCT Levels Ob Episode Information Episode Created Date Number of Fetuses Patient Bloodtype Patient rh Status Prepregnancy Weight lbs Domestic Partner Domestic Partner Phone Father Name [employer] Mixer Status 05/29/19 1 CLOSED Fetus Data First Name Last Name Admitted to NICU Weight (g) Sex Living Outcome Pediatric Complications Fetus ID Race Codes Race Delivery Type , Induced [id number] Albina Calculation Initial Albina Date Initial Exam Date Initial Exam Provider Initial Ultrasound Date Last Menstrual Period Date Ultra Sound Weeks Gestation 0 Eighteen To Twenty Week Albina Update Ultra Sound Date Fundal Height At Umbil Quickening Date Ultra Sound Latest Weeks Gestation Final Albina Confirmed By Final Albina Confirmed Date Final Albina Date Ultra Sound Latest Days Gestation 0 0 Menstrual History Last Menstrual Date Menses Monthly On Bcp Conception Prior Menses Frequency Hcg Plus Date Menarche Onset Age Delivery Information Delivery Date Delivery Type Labor Anesthesia Weeks Gestation Incision Type Labor Labor Length Hrs Delivered By Post Complications Tubal Sterilization Discharge Date Comments 1 Discharge Information Feeding Method Contraceptive Method Maternal HG B and HCT Levels Ob Episode Information Episode Created Date Number of Fetuses Patient Bloodtype Patient rh Status Prepregnancy Weight lbs Domestic Partner Domestic Partner Phone Father Name [employer] Mixer Status 07/04/19 25 1 DELETED Albina Calculation Initial Albina Date Initial Exam Date Initial Exam Provider Initial Ultrasound Date Last Menstrual Period Date Ultra Sound Weeks Gestation 0 Eighteen To Twenty Week Albina Update Ultra Sound Date Fundal Height At Umbil Quickening Date Ultra Sound Latest Weeks Gestation Final Albina Confirmed By Final Albina Confirmed Date Final Albina Date Ultra Sound Latest Days Gestation 0 0 Menstrual History Last Menstrual Date Menses Monthly On Bcp Conception Prior Menses Frequency Hcg Plus Date Menarche Onset Age Delivery Information Delivery Date Delivery Type Labor Anesthesia Weeks Gestation Incision Type Labor Labor Length Hrs Delivered By Post Complications Tubal Sterilization Discharge Date Comments 5 39 Discharge Information Feeding Method Contraceptive Method Maternal HG B and HCT Levels
--- OUTSIDE RECORDS SUMMARY | 2025-04-06 14:15 | XMS_ITS | Encounter Summary ---
Author Organization [facility] Healthcare Address [address] [place] [address] Care Team Providers Care Liability Claims Representative Name Role Phone No, Physician Primary Care Provider [phone] Andrzej Aburto MD Unavailable [phone] Encounter Details Date Type Department Care Team (Late st Contact Info) Description 11/29/2023 Telephone [facility] Specialty Services [address] [place] [phone] Miscellaneous, Not In File Social History Tobacco Use Types Packs/Day Years Used Date Smoking Tobacco: Never Assessed Personal Safety Answer Date Recorded Getting School Help Needed Not on file 06/25 Comments Unknown Sex and Gender Information Value Date Recorded Sex Assigned at Not on file 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
--- OUTSIDE RECORDS SUMMARY | 2025-04-06 14:15 | XMS_ITS | Clinical Summary ---
Author Organization [facility] [employer] Address [address] [place] [address] Care Team Providers Care Pluck Separator Name Role Phone Sky Palm MD Primary Care Provider [phone] Source Comments [facility] [employer],non-owned Affiliates and Associated Physician Practices is amultiple site organization consisting of ambulatory clinics and hospital sitesin [place], [place], [place] and [place]. This disclosure is being madepursuant to the Care Everywhere program and may not contain all information available regarding this patient. Last updated 18.[facility] Allergies No known active allergies Medications * This document contains information received from the source organization and may not represent a complete record from that organization. * Be aware that medications may not be up to date on this document. Alwaysverify current medications with the patient. Vit-Fe Fumarate-FA ( vitamin) 28-0.8 MG tablet Take 1 (one) tablet by mouth once daily Active aspirin EC (Ecotrin) 81 MG tablet Take 1 tablet every day by oral route as directed. 4 Active pimecrolimus (Elidel) 1 % creamIndication s:Other specified dermatitis,Othe r atopic dermatitis Apply to irritated and itchy areas 2 times daily PRN. 30 days supply. 100 g 11 4 Active Active Problems Problem Noted Date Diagnosed Date Suicide ideation 03/11/2023 NAFLD (nonalcoholic fatty liver disease) 021 Overview (03/24/2022): 05/30/20 Fibroscan CAP 397, LSM 20.0 kPa 03/22/22 Fibroscan CAP 386, LSM 5.5 kPa Viral hepatitis C 02/19/2020 Tobacco user 01/14/2020 Genital herpes simplex 06/05/2019 History of substance abuse 12/05/2018 Dysmenorrhea 12/05/2018 Family history of hyperlipidemia 03/28/2018 Obese 06/07/2017 Encounters Date Type Department Care Team Description 04/02/2025 Telephone [facility] - Nephrology [address] [place] [id number] Giselle Molina RN Concerns 03/05/2025 Travel from Last 3 Months Immunizations Immunization Administration Dates Next Due Covid Pfizer primary monoval ent 12+ yr 0.3mL Purple cap 08/07/2020,06/24/2020 Family History Medical History Relation Name Comments Cancer - Ovarian Maternal Grandmother Cancer - Other Mother Relation Name Status Comments Maternal Grandmother Mother Social History Tobacco Use Types Packs/Day Years Used Date Smoking Tobacco: Former Cigarettes 1 5 2 013 - 2017 Smokeless Tobacco: Never Alcohol Use Standard Drinks/Week Comments Not Currently 0 (1 standard drink = 0.6 oz pur e alcohol) NONE SINCE 2017 AUDIT-C Answer Date Recorded Q1: How often do you have a drink containing alcohol? 2-3 times a week 03/11/2023 Q2: How many drinks containi ng alcohol do you have on a typical day when you are drinking? 10 or more Q3: How often do you have si x or more drinks on one occasion? Daily or almost daily 03/11/2023 Overall Financial Resource Strain (CARDIA) Answe r Date Recorded How hard is it for you to pa y for the very basics like food, housing, medical care, and heating? Somewhat hard 03/11/[address] [facility] [place] of Occupat ional Health - Occupational Stress Questionnaire Answer Date Recorded Do you feel stress - tense, restless, nervous, or anxious, or unable to sleep at night because your mind is troubled all the time - these days? Very much 03/11/2023 Hunger Vital Sign Answer Date Recorded Within the past 12 months, y ou worried that your food would run out before you got the money to buy more. Often true Within the past 12 months, t he food you bought just didn't last and you didn't have money to get more. Sometimes true 01/2023 PRAPARE - Transportation Answer Date Re corded In the past 12 months, has l ack of transportation kept you from medical appointments or from getting medications? No 03/02 In the past 12 months, has l ack of transportation kept you from meetings, work, or from getting things needed for daily living? No 03/11/2023 Housing Stability Vital Sign Answer Ozzy e Recorded In the last 12 months, was t here a time when you were not able to pay the mortgage or rent on time? Yes 03/11/2023 In the last 12 months, how many places have you lived? 1 03/11/2023 In the last 12 months, was t here a time when you did not have a steady place to sleep or slept in a snf (including now)? No 03/11/2023 Education Answer Date Recorded What is the highest level of school you have completed or the highest degree you have received? 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 Not on file Not on file Last Filed Vital Signs Vital Sign Reading Time Taken Comments Blood Pressure 127/80 12/16/2023 10:35 AM CDT Pulse 81 12/16/2023 10:35 AM CDT Temperature 36.7 C (98 F) 12/16/2023 10:35 AM CDT Respiratory Rate 20 12/16/2023 10:35 AM CDT Oxygen Saturation 100% 12/16/2023 10:35 AM CDT Inhaled Oxygen Concentration - - Weight 104.3 kg (230 lb) 12/16/2023 10:35 AM CDT Height 165.1 cm (5' 5) 03/11/2023 4:32 PM DIRECTOR OF OUTPATIENT SERVICES Body Mass Index 38.27 03/11/2023 4:32 PM DIRECTOR OF OUTPATIENT SERVICES Plan of Treatment Health Maintenance Due Date Last Done Comments DTAP/TDAP/TD VACCINES (1 - Tdap) 01/27/2007 HEPATITIS B VACCINE (1 of 3 - 19+ 3-dose series) 01/27/2007 PAP SMEAR 01/27/2009 HPV VACCINE (1 - 3-dose SCDM series) 01/27/2015 DEPRESSION SCREENING 05/02/2024 COVID-19 VACCINE ( season) 2024 05/05/2021, 08/07/2020, 06/24/2020 INFLUENZA VACCINE (#1) 2024 01/21/2022, 2020 ZOSTER VACCINE (1 of 2) 01/27/2038 HIV SCREENING Completed 05/20/2020, 03/02, 03/11/2020, Additional history exists HEPATITIS C SCREENING Completed 03/22/2022 , 09/21/2021, 09/21/2021, Additional history exists HIB VACCINE Aged Out No longer eligi ble based on patient's age to complete this topic MENINGOCOCCAL (Group B) VACCINE SHARED DECISION-MAKING Aged Out No longer eligible based on patient's age to complete this topic MENINGOCOCCAL GROUPS A/C/Y/W VACCINE Aged Out No longer eligible based on patient's age to complete this topic PNEUMOCOCCAL VACCINE Aged Out No long er eligible based on patient's age to complete this topic Goals Goal Patient Goal Type Associated Problems Recent Progress Patient-Stated? Author Medication Management General On track( 024 10:43 AM CDT) No Camilla Higgins RN Note: Expected end date: ONGOING Interventions: Take all medications as prescribed Let your doctor know right away about any changes in your medications Make sure to request a refill of your medication at least one week prior to your last dose Procedures Procedure Name Priority Date/Time Associated Diagnosis Comments HEPATITIS C RNA QUANTITATIVE Routine 09/21/2021 11:35 AM CDT NAFLD (nonalcoholic fatty liver disease) Chronic hepatitis C without hepatic coma HIV-1 HIV-2 ANTIBODY + HIV P24 AG PANEL Routine 05/20/2020 12:07 PM DIRECTOR OF OUTPATIENT SERVICES Encounter for screening for HIV from Last 3 Months or Most Recently Relevant to Health Maintenance Results * HEPATITIS C RNA QUANTITATIVE (09/21/2021 11:35 AM CDT) [facility] Hepatitis C RNA PCR, Interp Not detected Not detected 09/25/2021 3:46 PM CDT [facility] Blood BLOOD SPECIMEN / Unknown Lab Venipuncture / Unknown 09/21/2021 11:35 AM CDT 09/21/2021 11:46 AM CDT Narrative [facility] - 09/25/2021 3:46 PM CDT The Hepatitis C viral (HCV) RNA analysis utilized a serum sample, real-time reverse visitor services assistant PCR, and is reported as Not Detected, Detected (<12 IU/mL), Quantity (IU/mL) or >30,000,000 IU/mL. The limit of quantitation of the assay is 12 IU/mL (100% of samples with this HCV RNA level were detected). The linear range is from 12 IU/mL to 30,000,000 IU/mL. Values less than 12 IU/mL are reported as Detected (<12 IU/mL). Values greater than 30,000,000 IU/mL are reported as >30,000,000 IU/mL. The detection/quantitation of HCV RNA in serum is based on the isolation of HCV RNA with reverse visitor services assistant of genomic HCV RNA followed by real-time PCR in the presence of an unrelated RNA internal control. The internal control ensures that RNA is isolated, and that no general significant inhibitors of the RT-PCR process are present. The analysis was performed using a U.S. FDA approved test methodology ([employer] Real Time HCV). Sheree Curiel ACADEMY DIRECTOR-ORGANIZATIONAL PSYCHOLOGIST LAB - CHEMISTRY ORD ERABLES Final Result [facility] [address] [place] [address], [facility] [phone] * HIV-1 HIV-2 ANTIBODY + HIV P24 AG PANEL (05/20/2020 12:07 PM DIRECTOR OF OUTPATIENT SERVICES) [facility] HIV Screen 4th Generation w Reflex NON-REACT RASHAAD NON-REACT RASHAAD [facility] Comment: HIV-1 antigen and HIV-1/HIV-2 antibodies were not detected. There is no laboratory evidence of HIV infection. PLEASE NOTE: This information has been disclosed to you from records whose confidentiality may be protected by state law. If your state requires such protection, then the state law prohibits you from making any further disclosure of the information without the specific written consent of the person to whom it pertains, or as otherwise permitted by law. A general authorization for the release of medical or other information is NOT sufficient for this purpose. For additional information please refer to http://education.[employer]/faq/EOQ144 (This link is being provided for informational/ educational purposes only.) The performance of this assay has not been clinically validated in patients less than 2 years old. Test Performed at: [facility] [address] [place] [address] DOM SPEARS DO,MPH Blood BLOOD SPECIMEN / Unknown 05/20/2020 12:07 PM DIRECTOR OF OUTPATIENT SERVICES 05/21/2020 4:45 AM DIRECTOR OF OUTPATIENT SERVICES Reina Pearson MD LAB - CHEMISTRY ORDERABLES Final Result [facility] [address] [place] [address] from Last 3 Months or Most Recently Relevant to Health Maintenance Insurance MEDICAID - OUT OF STATE Advance Directives * Full Code (Latest Code Status on File) Date Activated Date Inactivated Comments 03/11/2023 4:40 PM 03/14/2023 7:04 PM Care Teams Pluck Separator Relationship Specialty Start Date End Date Sky Palm MD [address] [place] [address] PCP - General Gastroenterology 03/11/23
[2025-04-06 14:18] VITALS: BP 147/82; PULSE 94; RESP 18; TEMP 36.4; O2SAT 97
--- NOTE | 2025-04-06 17:32 | ED.GENADULT ---
HPI - General Adult General Chief complaint: Ear Stated complaint: I have a double ear infection Time Seen by Provider: 04/06/25 17:07 History of Present Illness HPI narrative: 35-year-old female presents to the emergency department for evaluation for bilateral ear pain. Patient reports she was treated with cefdinir for a bilateral infection approximately 1 month ago and patient states that the symptoms have persisted. Patient does have history of lichen planus. Patient felt that she has had increased flaking from the left ear and the right ear has been swollen. Related Data Allergies Allergy/AdvReac Type Severity Reaction Status Date / Time No Known Allergies Allergy Verified 04/06/25 14:17 Review of Systems Review of Systems: All systems reviewed & are unremarkable except as noted in HPI and below PMFSH Past Medical History Medical History History of hepatitis C Social History Social History Smoking status: Former smoker Exam Narrative: APPEARANCE: Well appearing, no pain, no distress, well-nourished. HEAD: normocephalic, atraumatic. EYES: PERRLA/EOMI, conjunctivae clear. NOSE: Normal no drainage EARS: otitis externa of the left ear and right ear with swelling of the external ear canal of the right ear, but no significant erythema of either tympanic membrane. no mastoid tenderness THROAT: Pharynx clear, no exudate. NECK: Supple. No adenopathy, no masses. RESPIRATORY: Airway patent, respirations nonlabored. Clear to auscultation bilaterally, no rales, rhonchi, wheezing. CARDIOVASCULAR: Regular rate and rhythm without murmurs rubs or gallops. ABDOMINAL: Soft, nontender, nondistended, normal bowel sounds MUSCULOSKELETAL: Moves all extremities. Strength/ROM intact, No edema, No calf tenderness. NEURO: Alert. Cranial nerves II through XII intact. grossly intact SKIN: Warm, dry. Normal Color Course Vital Signs Vital signs: Vital Signs Temperature 97.6 F 04/06/25 14:18 Pulse Rate 94 04/06/25 14:18 Respiratory Rate 18 04/06/25 14:18 Blood Pressure 147/82 H 04/06/25 14:18 Pulse Oximetry 97 04/06/25 14:18 Oxygen Delivery Room Air 04/06/25 14:18 Temperature 97.6 F 04/06/25 14:18 Pulse Rate 82 04/06/25 18:14 Respiratory Rate 18 04/06/25 18:14 Blood Pressure 128/76 04/06/25 18:14 Pulse Oximetry 99 04/06/25 18:14 Oxygen Delivery Room Air 04/06/25 14:18 MDM MDM Narrative Medical decision making narrative: 35-year-old female presented to the emergency department for evaluation for bilateral air swelling worse on the right than left. Patient was started on p.o. Augmentin the emergency department. Patient did have significant swelling of the right external ear canal and a wick was placed and patient was treated with ofloxacin. Patient was provided ofloxacin drops for home and also provided Augmentin for home. Patient was also provided outpatient follow-up with ENT. Patient family were updated the results of the workup plan for treatment for home and outpatient follow-up. All questions concerns were addressed. Differential Diagnosis Differential Diagnosis: Otitis media otitis externa, malignant otitis Discharge Plan Discharge Clinical Impression: Otitis externa Patient Disposition: Home Condition: Stable Instructions: Antibiotic Form, Swimmer's Ear (ED) Additional Instructions: Ear drops as directed in the right ear. Oral antibiotics as directed until completed. Ibuprofen for pain control. [place] as needed for additional pain control. Have close follow-up with ENT. If you have any worsening symptoms then please call or return to the emergency department. Patient Language: Algerian Prescriptions: New hydrocodone-acetaminophen 5-325 mg tablet 1 tablet PO Q12H PRN (Reason: pain) Qty: 10 0RF amoxicillin-pot clavulanate 875-125 mg tablet 1 tablet PO Q12H 7 Days Qty: 14 0RF ofloxacin 0.3 % drops 10 drp RIGHT EAR BID 7 Days Qty: 10 0RF No Action albuterol sulfate 90 mcg/actuation HFA aerosol inhaler 2 puff inhalation QID PRN (Reason: shortness of breath or wheezing) Qty: 6.7 0RF cefdinir 300 mg capsule 300 mg PO Q12H 7 Days Qty: 14 0RF prednisone 20 mg tablet 40 mg PO DAILY 5 Days Qty: 10 0RF albuterol sulfate 90 mcg/actuation HFA aerosol inhaler 2 puff inhalation QID PRN (Reason: shortness of breath or wheezing) Qty: 8.5 0RF Follow-up/Referrals: Oliver Duque MD [Physician, Ear, Nose, Throat] Noe,Dinora Pereira APRN [Primary Care Provider, Unknown]
--- OUTSIDE RECORDS SUMMARY | 2025-04-06 17:35 | XMS_ITS | Clinical Summary ---
Author Organization [facility] [employer] Address [address] [place] [address] Care Team Providers Care Operational Intelligence Officer Name Role Phone Sky Palm MD Primary Care Provider [phone] Source Comments [facility] [employer],non-owned Affiliates and Associated Physician Practices is amultiple site organization consisting of ambulatory clinics and hospital sitesin [place], [place], [place] and [place]. This disclosure is being madepursuant to the Care Everywhere program and may not contain all information available regarding this patient. Last updated 18.[facility] [employer] Allergies No known active allergies Medications * [...] Telephone [facility] - Nephrology [address] [facility] [place] [place] [id number] Giselle Molina RN Concerns 03/05/2025 Travel from [...] medical care, and heating? Somewhat hard 03/11/2023 [facility] [place] of Occupat ional Health - Occupational Stress [...] place to sleep or slept in a usp (including now)? No 03/11/2023 Education Answer Date Recorded What is the highest level of school you have completed or the highest degree you have received? 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 Blood BLOOD SPECIMEN / Unknown Lab Venipuncture / Unknown 09/21/2021 11:35 AM CDT 09/21/2021 11:[address] [facility] - 09/25/2021 3:46 PM CDT The Hepatitis C viral (HCV) RNA analysis utilized a serum sample, real-time reverse galvanometer assembler PCR, and is reported as Not Detected, [...] the isolation of HCV RNA with reverse galvanometer assembler of genomic HCV RNA followed by real-time PCR in the presence of an unrelated RNA internal control. The internal control ensures that RNA is isolated, and that no general significant inhibitors of the RT-PCR process are present. The analysis was performed using a U.S. FDA approved test methodology ([employer] Real Time HCV). Sheree Curiel DELIVERY ASSOCIATE-MUNICIPAL FIREFIGHTER LAB - CHEMISTRY ORD ERABLES Final Result [facility] [address] [place] [address], [facility] [phone] * HIV-1 HIV-2 ANTIBODY + HIV P24 AG PANEL (05/20/2020 12:07 PM SMALL LOT OPERATOR) [facility] HIV Screen 4th Generation w Reflex NON-REACT [...] purpose. For additional information please refer to http://education.[employer]/faq/TRU294 (This link is being provided for informational/ educational purposes only.) The performance of this assay has not been clinically validated in patients less than 2 years old. Test Performed at: [facility] [address] [place] [address] DOM SPEARS DO,MPH Blood BLOOD SPECIMEN / Unknown 05/20/2020 12:07 PM SMALL LOT OPERATOR 05/21/2020 4:45 AM SMALL LOT OPERATOR Reina Pearson MD LAB - CHEMISTRY ORDERABLES Final Result [facility] [address] [place] [address] from Last 3 Months or Most Recently Relevant to Health Maintenance Insurance MEDICAID - OUT OF STATE Advance Directives * Full Code (Latest Code Status on File) Date Activated Date Inactivated Comments 03/11/2023 4:40 PM 03/14/2023 7:04 PM Care Teams Operational Intelligence Officer Relationship Specialty Start Date End Date Sky Palm MD [address] [place] [address] PCP - General Gastroenterology 03/11/23
--- OUTSIDE RECORDS SUMMARY | 2025-04-06 17:35 | XMS_ITS | Encounter Summary ---
Author Organization [facility] Address [address] [place] [address] Care Team Providers Care Glaze Supervisor Name Role Phone Fabian Callaway Primary Care Provider Sky Palm MD Primary Care Provider [phone] Encounter Details Date Type Department Care Team (Late st Contact Info) Description 06/15/2022 Lab Requisition [facility] Care DermPath Lab [address] [place] [id number] Kirit Hernandez MD [address] [place] [address] Social History Tobacco Use Types [...] Sex Assigned at Female 06/20/2020 7:09 PM BRINE MIXER OPERATOR Legal Sex Female 10:18 AM CDT Gender Identity Female 06/20/2020 7:09 PM BRINE MIXER OPERATOR Sexual Orientation Not on file 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 SKIN, right dorsal forearm: LICHEN PLANUS (L43.9) 3 4:55 PM [facility] DERMATOPATHOLOGY LABORATORY at [address] BRINE MIXER OPERATOR Clinical History L.P. 3 4:55 PM [facility] DERMATOPATHOLOGY LABORATORY Gross Description Specimen A: Received is one formalin filled container labeled with the patient's name and designated right dorsal forearm. The specimen consists of a shave biopsy measuring 3x3x1 mm. Jar 0. 3 4:55 PM [facility] DERMATOPATHOLOGY LABORATORY Microscopic Description Specimen A. SKIN, right dorsal forearm: There is saw-toothed epidermal hyperplasia, hypergranulosis, and compact hyperorthokeratosis . There is a lichenoid infiltrate of lymphocytes that obscures the dermal-epidermal junction in association with vacuolar alteration and necrotic keratinocytes. 3 4:55 PM [facility] DERMATOPATHOLOGY LABORATORY Disclaimer An external and internal positive and negative controls are appropriate for the histochemical, immunohistochemical and immunofluorescence stain(s) in this case (if any), except where stated explicitly. The performance characteristics of the stain(s) cited in this report were developed and its performance characteristic determined by the Dermatopathology Laboratory at [facility], directed by Dr. Shila Veronica. These tests need not be, and therefore are not, approved by the [place] Food and Drug Administration. The tests are used for clinical purposes. Billing Codes Specimen Charges Stain Charges 10483 1 3 4:55 PM [facility] DERMATOPATHOLOGY LABORATORY Embedded Images 3 4:55 PM [facility] DERMATOPATHOLOGY LABORATORY Pathology/Cytolog y TISSUE SPECIMEN FROM SKIN / Unknown 06/15/2022 06/15/2022 3:34 PM [facility] us Kirit Hernandez MD LAB - PATHOLOGY/CYTOLOGY ORDERAB LES Final Result DERMATOPATHOLOGY LABORATORY [facility] - Department of Dermatology [address], [address] [phone] documented in this encounter Visit Diagnoses Not on filedocumented in this encounter Care Teams Glaze Supervisor Relationship Specialty Start Date End Date Fabian Callaway, BABY SITTER-SOLUTION STRATEGIST [address] [place], [place] [id number] PCP - General 02/20/20 03/10/23 Sky Palm MD [address] [place] [address] PCP - General Gastroenterology 03/11/23 documented as of this encounter
--- OUTSIDE RECORDS SUMMARY | 2025-04-06 17:35 | XMS_ITS | Clinical Summary ---
Author Organization [facility] Address [address] [place] [phone] Care Team Providers Care Pulley Man Name Role Phone No, Physician Primary Care Provider Andrzej Aburto MD Unavailable [phone] Allergies No known active allergies Medications vit [id number] a 27mg iron- 800 mcg-250 mg capsule [...] (HCC) receiv ed tx in 2020 from [facility] Herpes Thrombocytopenic disorder plt 10 [...] week 06/28/2024 How often do you attend [facility] or jew services? More than 4 times per year 06/28/2024 Do you belong to any clubs o r organizations such as quaker groups, unions, fraternal or athletic groups, or [...] staff should administer the PHQ-9) 0 06/28/2024 [facility] of Occupat ional Health - Occupational Stress [...] things needed for daily living? No 06/28/2024 Marcellus Depression Scale Answer Date Recorded Marcellus Depression Scale Total 0 06/29/2024 The thought [...] any time in the past 12 [facility], were you homeless or living in a prison (including now)? Yes 06/28/2024 Personal Safety Answer Date Recorded Have you ever been in or are you currently in a harmful physical or emotional relationship or is someone making you feel afraid or unsafe? Denies 06/28/2024 Comments No Sex and Gender Information Value Date Recorded Sex Assigned at Not on file Legal Sex Female 10:46 PM [employer] Gender Identity Not on file Sexual Orientation [...] Comments Blood Pressure 133/63 07/01/2024 10:01 AM [employer] Pulse 93 07/01/2024 10:01 AM [employer] Temperature 36.4 C (97.5 F) 07/01/2024 10:01 AM [employer] Respiratory Rate 14 07/01/2024 10:01 AM [employer] Oxygen Saturation 98% 07/01/2024 6:41 AM [employer] Inhaled Oxygen Concentration - - Weight 113 kg (249 lb 3.2 oz) 06/21/2024 2:46 PM [employer] Height 165.1 cm (5' 5) 06/28/2024 10:00 AM [employer] Body Mass Index 41.47 12/10/2020 8:04 AM [...] Most Recently Relevant to Health Maintenance Insurance [facility] OTHER R [facility] H[facility]/PPO Address: [address] [address] [place] [address] [facility] Advance Directives For more information, please contact: [phone] * Full Code (Latest Code Status on File) Date Activated Date Inactivated Comments 06/28/2024 1:35 PM 07/01/2024 5:12 PM * Full Code Date Activated Date Inactivated Comments 06/28/2024 8:22 AM 06/28/2024 1:35 PM Full CPR in case of cardiopulmonary arrest Care Teams Pulley Man Relationship Specialty Start Date End Date No, Physician PCP - General 11/29/23 Andrzej Aburto MD [address] [place] [address] 11/29/23
--- OUTSIDE RECORDS SUMMARY | 2025-04-06 17:35 | XMS_ITS | Encounter Summary ---
Author Organization [facility] Address [address] [place] [address] Care Team Providers Care Metallurgy Laboratory Technician Name Role Phone No, Physician Primary Care Provider [phone] Andrzej Aburto MD Unavailable [phone] Encounter Details Date Type Department Care Team (Late st Contact Info) Description 11/29/2023 Telephone [facility] Specialty Services [address] [place] [phone] Miscellaneous, Not In File Social History Tobacco Use Types Packs/Day Years Used Date Smoking Tobacco: Never Assessed Personal Safety Answer Date Recorded Getting School Help Needed Not on file 06/25 Comments Unknown Sex and Gender Information Value Date Recorded Sex Assigned at Not on file 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 [place] [address] 11/29/23 documented as of this encounter
[2025-04-06] MEDS: HYDROcodone/acetaminophen (*CRX) 7.5-325 MG TABLET 1 TAB PO (18:05)
[2025-04-06] MEDS: IBUPROFEN 600 MG TABLET PO (18:05)
[2025-04-06 18:14] VITALS: BP 128/76; PULSE 82; RESP 18; O2SAT 99
== END 2025-04-06 18:16 | disposition home or self-care (01) ==
PROVIDERS: Emergency Provider Emergency Medicine; PCP Nurse Practitioner Family
DX: H60.91 Unspecified otitis externa, right ear (principal); Z86.19 Personal history of other infectious and parasitic diseases
CPT/HCPCS: 99283; A9270